=== PATIENT | female | born 1960 | race Caucasian/White ===

== ENCOUNTER 2022-02-12 16:08 | Observation (INO) | payer MEDICARE ==
[2022-02-12] MEDS ORDERED: Sodium Chloride 0.9% 1000 ML 1,000 ML IV STA (16:22)
--- NOTE | 2022-02-12 16:52 | ERPHSYRPT ---
- History of Present Illness Time Seen by Provider: 02/12/22 16:11 Source: patient, EMS Exam Limitations: no limitations Patient Subjective Stated Complaint: Syncope episode just prior to arrival to ED. Denies pain. States she was sitting down at a friends how, she remembers getting hot/flushed and then asking for a drink. Patient states she doesn't remember much after that but her friend states she started to fall out of her chair but the friend kept that from happening. Triage Nursing Assessment: Patient brought into ED by ambulace. She is alert and oriented. No SOB. LOPEZ WNL. Oral mucosa noted to be dry; lips sticking when speaking at times. Physician History: 61 years old female with history of anxiety, hypertension, migraine presented in the ER with chief complaint of syncopal episode via EMS. Patient reports she was drinking coffee and started to feel hot and the next thing it was noticed that she passed out for few seconds to minute. No seizure-like activity noticed by family/friends. No loss of bowel or bladder control/tongue bite. She is back to her normal. Patient denies having chest pain, palpitations, feeling dizzy lightheaded before or after the episode of syncope. Denies any history of syncope in the past. No abdominal pain nausea vomiting or diarrhea reported. Timing/Duration: today, resolved prior to arrival, improved Severity: moderate Deficits: no difficulties Baseline/Normal Cognition: alert oriented x 3 Current Cognition: alert oriented x 3 Baseline Gait: walks w/o assistance Associated Symptoms: fatigue, No nausea, No vomiting, No weakness, No insomnia, No muscle spasms, No numbness/tingling in legs/feet, No paresthesia, No ringing in ears, No seizures, No slurred speech, No trouble walking, No vision changes, No chest pain, No headache Allergies/Adverse Reactions: Penicillins Allergy (Verified 02/12/22 16:11) Home Medications: Lisinopril 10 mg [Zestril 10 MG] 1 tab PO DAILY 02/12/22 [History] Metoclopramide HCl 1 tab PO TID 02/12/22 [History] Topiramate [Trokendi Xr] 1 cap PO DAILY 02/12/22 [History] Venlafaxine HCl [Venlafaxine HCl ER] 1 tab PO DAILY 02/12/22 [History] Hx Tetanus, Diphtheria Vaccination/Date Given: Yes Hx Influenza Vaccination/Date Given: No Hx Pneumococcal Vaccination/Date Given: No Immunizations Up to Date: Yes Travel Risk - International Travel Have you traveled outside of the country in past 3 weeks: No - Coronavirus Screening Are you exhibiting any of the following symptoms?: Yes Symptoms: Cough: New Onset, Headaches/Body Aches/Fatigue Close contact with a COVID-19 positive Pt in past 14-21 Days: No - Vaccine Status Have you recieved a Covid-19 vaccination: No - Review of Systems Constitutional: No Symptoms Eyes: No Symptoms Ears, Nose, & Throat: No Symptoms Respiratory: No Symptoms Cardiac: No Symptoms Abdominal/Gastrointestinal: No Symptoms Genitourinary Symptoms: No Symptoms Musculoskeletal: No Symptoms Skin: No Symptoms Neurological: No Symptoms Psychological: No Symptoms Endocrine: No Symptoms Hematologic/Lymphatic: No Symptoms Immunological/Allergic: No Symptoms - Past Medical History Pertinent Past Medical History: Yes Neurological History: Migraines Cardiac History: Hypertension Musculoskeletal History: Degenerative Disk Disease GI Medical History: GERD Psycho-Social History: Anxiety - Past Surgical History Past Surgical History: Yes Gastrointestinal: Appendectomy, Cholecystectomy Female Surgical History: Hysterectomy, Section Other Surgical History: Bilateral elbow and hand surgery - Social History Smoking Status: Current every day smoker How long have you smoked: 45 years Exposure to second hand smoke: Yes Drug Use: none - Nursing Vital Signs Nursing Vital Signs: Initial Vital Signs Temperature 98.1 F 02/12/22 16:14 Pulse Rate 78 02/12/22 16:14 Respiratory Rate 18 02/12/22 16:14 Blood Pressure 108/63 02/12/22 16:14 O2 Sat by Pulse Oximetry 96 02/12/22 16:14 Pain Scale Pain Intensity 0 - [place] Coma Scale Best Eye Response (Peggy): (4) open spontaneously Best Verbal Response ([place]): (5) oriented Best Motor Response (Peggy): (6) obeys commands Peggy Total: 15 - Physical Exam General Appearance: no apparent distress, alert Eye Exam: bilateral eye: normal inspection, PERRL, EOMI Ears, Nose, Throat Exam: normal ENT inspection, TMs normal, pharynx normal, moist mucous membranes Neck Exam: normal inspection, non-tender, supple, full range of motion, No meningismus Respiratory: normal breath sounds, lungs clear Cardiovascular: regular rate/rhythm, normal heart sounds Gastrointestinal: soft, normal bowel sounds, No tenderness Back Exam: normal inspection, normal range of motion Extremity Exam: normal inspection, normal range of motion, pelvis stable Mental Status: alert, oriented x 3, cooperative injection machine operator Exam: normal hearing, normal speech, PERRL Coordination/Gait: normal finger to nose, normal gait, normal cerebellar function, negative Romberg's sign Motor/Sensory: no motor deficit, no sensory deficit, no pronator drift, negative Babinski's sign DTR: bicep (R): 2+, bicep (L): 2+, knee (R): 2+, knee (L): 2+ Skin Exam: normal color SpO2 Interpretation: normal SpO2: 96 O2 Delivery: Room Air - Course EKG Interpreted by Me: RATE (72), Sinus Rhythm, NORMAL AXIS, NORMAL INTERVALS, Right Bundle Branch Block, Non-specific ST Changes Ordered Tests: Active Orders 24 hr Category Date Time Status [employer] Principal STAT Care 02/12/22 16:23 Active Clean Catch Urine Specimen STAT Care 02/12/22 16:22 Active EKG-ER Only STAT Care 02/12/22 16:22 Active IV Insertion STAT Care 02/12/22 16:22 Active Orthostatic Vital Signs STAT Care 02/12/22 16:22 Active POCT Glucose Check STAT Care 02/12/22 16:22 Active CHEST 1 VIEW (PORTABLE) Stat Exams 02/12/22 16:22 Completed HEAD WITHOUT CONTRAST [CT] Stat Exams 02/12/22 16:22 Completed BLOOD CULTURE Stat Lab 02/12/22 16:50 Received BNP [NT PRO BNP] Stat Lab 02/12/22 16:45 Completed CBC W DIFF Stat Lab 02/12/22 16:45 Completed CMP Stat Lab 02/12/22 16:45 Completed CULTURE,URINE Stat Lab 02/12/22 17:41 Received MAG [MAGNESIUM] Stat Lab 02/12/22 16:45 Completed TROPONIN Q3H Lab 02/12/22 16:45 Completed TROPONIN Q3H Lab 02/12/22 19:30 Ordered TROPONIN Q3H Lab 02/12/22 22:30 Ordered TROPONIN Q3H Lab 02/13/22 01:30 Ordered UA W/RFX CULTURE Stat Lab 02/12/22 17:41 Completed Urine Triage Profile Stat Lab 02/12/22 17:10 Completed Transfer Order Routine Transfer 02/12/22 Ordered Medication Summary Generic Name Dose Route Start Last Admin Trade Name Issac PRN Reason Stop Dose Admin Levofloxacin/Dextrose 750 mg in 150 mls @ 100 mls/hr 02/12/22 17:50 02/12/22 17:56 Levofloxacin 750mg/150ml D5w IV 02/12/22 19:19 100 mls/hr STAT STA 100 mls/hr Administration Discontinued Medications Generic Name Dose Route Start Last Admin Trade Name Freq PRN Reason Stop Dose Admin Sodium Chloride 1,000 mls @ 999 mls/hr 02/12/22 16:22 02/12/22 18:19 Sodium Chloride 0.9% 1000 Ml IV 02/12/22 17:22 Infused .Q1H1M STA Infusion Sodium Chloride Confirm 02/12/22 17:09 Sodium Chloride 0.9% 1000 Ml Administered 02/12/22 17:10 Dose 1,000 mls @ ud .ROUTE .[employer] ONE Levofloxacin/Dextrose Confirm 02/12/22 17:54 Levofloxacin 750mg/150ml D5w Administered 02/12/22 17:55 Dose 750 mg in 150 mls @ ud IV .[facility] [employer] Lab/Rad Data: Laboratory Result Diagrams 02/12/22 16:45 02/12/22 16:45 Laboratory Results 02/12/22 02/12/22 02/12/22 Range/Units 18:00 17:41 17:10 WBC (4.0-10.5) x10^3/uL RBC (4.1-5.4) x10^6/uL Hgb (12.0-16.0) g/dL Hct (35-47) % MCV (78-100) fL MCH (26-32) pg MCHC (32-36) g/dL RDW (11.5-14.0) % Plt Count (150-450) x10^3/uL MPV (7.5-11.0) fL Gran % (36.0-66.0) % Immature Gran % (Auto) (0.00-0.4) % Nucleat RBC Rel Count (0.00-0.1) % Eos # (Auto) (0-0.5) x10^3/uL Immature Gran # (Auto) (0.00-0.03) x10^3u/L Absolute Lymphs (auto) (1.0-4.6) x10^3/uL Absolute Monos (auto) (0.0-1.3) x10^3/uL Absolute Nucleated RBC (0.00-0.01) x10^3u/L Lymphocytes % (24.0-44.0) % Monocytes % (0.0-12.0) % Eosinophils % (0.00-5.0) % Basophils % (0.0-0.4) % Absolute Granulocytes (1.4-6.9) x10^3/uL Basophils # (0-0.4) x10^3/uL Sodium (137-145) mmol/L Potassium (3.5-5.1) mmol/L Chloride (98-107) mmol/L Carbon Dioxide (22-30) mmol/L Anion Gap (5-15) MEQ/L BUN (7-17) mg/dL Creatinine (0.52-1.04) mg/dL Estimated GFR ML/MIN Glucose (74-106) mg/dL Calcium (8.4-10.2) mg/dL Magnesium (1.6-2.3) mg/dL Total Bilirubin (0.2-1.3) mg/dL AST (14-36) U/L ALT (0-35) U/L Alkaline Phosphatase (38-126) U/L Troponin I (0.000-0.034) ng/mL NT-Pro-B Natriuret Pep (0-900) pg/mL Serum Total Protein (6.3-8.2) g/dL Albumin (3.5-5.0) g/dL Urinalys Dipstick Clnc MAIN LAB Urine Color YELLOW (YELLOW) Urine Appearance SLIGHTLY CLOUDY A (CLEAR) Urine pH 6.5 (5-6) Ur Specific [place] 1.020 (1.005-1.025) POC Urine Protein Conf 30 A (Negative) Urine Ketones NEGATIVE (NEGATIVE) Urine Nitrite POSITIVE A (NEGATIVE) Urine Bilirubin NEGATIVE (NEGATIVE) Urine Urobilinogen 0.2 (0-1) mg/dL Urine Leukocytes TRACE A (NEGATIVE) Urine WBC (Auto) 3-5 A (0-5) /HPF Urine RBC (Auto) 0-2 (0-2) /HPF U Epithel Cells (Auto) NONE (FEW) /HPF Urine Bacteria (Auto) MANY A (NEGATIVE) /HPF Urine RBC SMALL A (0-5) Branden/ul Urine Mucus (Auto) SLIGHT A (NEGATIVE) /HPF Ur Culture Indicated? YES Urine Glucose NEGATIVE (NEGATIVE) mg/dL Urine Opiates Level NEGATIVE (NEGATIVE) Ur Methadone NEGATIVE (NEGATIVE) Urine Barbiturates NEGATIVE (NEGATIVE) Ur Phencyclidine (PCP) NEGATIVE (NEGATIVE) Urine Amphetamine NEGATIVE (NEGATIVE) U Benzodiazepine Level NEGATIVE (NEGATIVE) Urine Cocaine NEGATIVE (NEGATIVE) Urine Marijuana (THC) POSITIVE (NEGATIVE) Influenza Type A Ag NEGATIVE (NEGATIVE) Influenza Type B Ag NEGATIVE (NEGATIVE) RSV (PCR) NEGATIVE (Negative) SARS-CoV-2 (PCR) NEGATIVE (NEGATIVE) 02/12/22 02/12/22 02/12/22 Range/Units 16:45 16:45 16:45 WBC (4.0-10.5) x10^3/uL RBC (4.1-5.4) x10^6/uL Hgb (12.0-16.0) g/dL Hct (35-47) % MCV (78-100) fL MCH (26-32) pg MCHC (32-36) g/dL RDW (11.5-14.0) % Plt Count (150-450) x10^3/uL MPV (7.5-11.0) fL Gran % (36.0-66.0) % Immature Gran % (Auto) (0.00-0.4) % Nucleat RBC Rel Count (0.00-0.1) % Eos # (Auto) (0-0.5) x10^3/uL Immature Gran # (Auto) (0.00-0.03) x10^3u/L Absolute Lymphs (auto) (1.0-4.6) x10^3/uL Absolute Monos (auto) (0.0-1.3) x10^3/uL Absolute Nucleated RBC (0.00-0.01) x10^3u/L Lymphocytes % (24.0-44.0) % Monocytes % (0.0-12.0) % Eosinophils % (0.00-5.0) % Basophils % (0.0-0.4) % Absolute Granulocytes (1.4-6.9) x10^3/uL Basophils # (0-0.4) x10^3/uL Sodium 134 L (137-145) mmol/L Potassium 4.2 (3.5-5.1) mmol/L Chloride 104 (98-107) mmol/L Carbon Dioxide 25 (22-30) mmol/L Anion Gap 8.7 (5-15) MEQ/L BUN 12 (7-17) mg/dL Creatinine 0.68 (0.52-1.04) mg/dL Estimated GFR > 60.0 ML/MIN Glucose 106 (74-106) mg/dL Calcium 8.5 (8.4-10.2) mg/dL Magnesium 1.8 (1.6-2.3) mg/dL Total Bilirubin 0.20 (0.2-1.3) mg/dL AST 21 (14-36) U/L ALT 17 (0-35) U/L Alkaline Phosphatase 63 (38-126) U/L Troponin I < 0.012 (0.000-0.034) ng/mL NT-Pro-B Natriuret Pep 65.8 (0-900) pg/mL Serum Total Protein 6.1 L (6.3-8.2) g/dL Albumin 3.8 (3.5-5.0) g/dL Urinalys Dipstick Clnc Urine Color (YELLOW) Urine Appearance (CLEAR) Urine pH (5-6) Ur Specific [place] (1.005-1.025) POC Urine Protein Conf (Negative) Urine Ketones (NEGATIVE) Urine Nitrite (NEGATIVE) Urine Bilirubin (NEGATIVE) Urine Urobilinogen (0-1) mg/dL Urine Leukocytes (NEGATIVE) Urine WBC (Auto) (0-5) /HPF Urine RBC (Auto) (0-2) /HPF U Epithel Cells (Auto) (FEW) /HPF Urine Bacteria (Auto) (NEGATIVE) /HPF Urine RBC (0-5) Branden/ul Urine Mucus (Auto) (NEGATIVE) /HPF Ur Culture Indicated? Urine Glucose (NEGATIVE) mg/dL Urine Opiates Level (NEGATIVE) Ur Methadone (NEGATIVE) Urine Barbiturates (NEGATIVE) Ur Phencyclidine (PCP) (NEGATIVE) Urine Amphetamine (NEGATIVE) U Benzodiazepine Level (NEGATIVE) Urine Cocaine (NEGATIVE) Urine Marijuana (THC) (NEGATIVE) Influenza Type A Ag (NEGATIVE) Influenza Type B Ag (NEGATIVE) RSV (PCR) (Negative) SARS-CoV-2 (PCR) (NEGATIVE) 02/12/22 Range/Units 16:45 WBC 4.8 (4.0-10.5) x10^3/uL RBC 4.45 (4.1-5.4) x10^6/uL Hgb 13.7 (12.0-16.0) g/dL Hct 40.3 (35-47) % MCV 90.6 (78-100) fL MCH 30.8 (26-32) pg MCHC 34.0 (32-36) g/dL RDW 11.9 (11.5-14.0) % Plt Count 174 (150-450) x10^3/uL MPV 9.7 (7.5-11.0) fL Gran % 63.0 (36.0-66.0) % Immature Gran % (Auto) 0.4 (0.00-0.4) % Nucleat RBC Rel Count 0.0 (0.00-0.1) % Eos # (Auto) 0.13 (0-0.5) x10^3/uL Immature Gran # (Auto) 0.02 (0.00-0.03) x10^3u/L Absolute Lymphs (auto) 1.15 (1.0-4.6) x10^3/uL Absolute Monos (auto) 0.44 (0.0-1.3) x10^3/uL Absolute Nucleated RBC 0.00 (0.00-0.01) x10^3u/L Lymphocytes % 24.1 (24.0-44.0) % Monocytes % 9.2 (0.0-12.0) % Eosinophils % 2.7 (0.00-5.0) % Basophils % 0.6 (0.0-0.4) % Absolute Granulocytes 3.00 (1.4-6.9) x10^3/uL Basophils # 0.03 (0-0.4) x10^3/uL Sodium (137-145) mmol/L Potassium (3.5-5.1) mmol/L Chloride (98-107) mmol/L Carbon Dioxide (22-30) mmol/L Anion Gap (5-15) MEQ/L BUN (7-17) mg/dL Creatinine (0.52-1.04) mg/dL Estimated GFR ML/MIN Glucose (74-106) mg/dL Calcium (8.4-10.2) mg/dL Magnesium (1.6-2.3) mg/dL Total Bilirubin (0.2-1.3) mg/dL AST (14-36) U/L ALT (0-35) U/L Alkaline Phosphatase (38-126) U/L Troponin I (0.000-0.034) ng/mL NT-Pro-B Natriuret Pep (0-900) pg/mL Serum Total Protein (6.3-8.2) g/dL Albumin (3.5-5.0) g/dL Urinalys Dipstick Clnc Urine Color (YELLOW) Urine Appearance (CLEAR) Urine pH (5-6) Ur Specific [place] (1.005-1.025) POC Urine Protein Conf (Negative) Urine Ketones (NEGATIVE) Urine Nitrite (NEGATIVE) Urine Bilirubin (NEGATIVE) Urine Urobilinogen (0-1) mg/dL Urine Leukocytes (NEGATIVE) Urine WBC (Auto) (0-5) /HPF Urine RBC (Auto) (0-2) /HPF U Epithel Cells (Auto) (FEW) /HPF Urine Bacteria (Auto) (NEGATIVE) /HPF Urine RBC (0-5) Branden/ul Urine Mucus (Auto) (NEGATIVE) /HPF Ur Culture Indicated? Urine Glucose (NEGATIVE) mg/dL Urine Opiates Level (NEGATIVE) Ur Methadone (NEGATIVE) Urine Barbiturates (NEGATIVE) Ur Phencyclidine (PCP) (NEGATIVE) Urine Amphetamine (NEGATIVE) U Benzodiazepine Level (NEGATIVE) Urine Cocaine (NEGATIVE) Urine Marijuana (THC) (NEGATIVE) Influenza Type A Ag (NEGATIVE) Influenza Type B Ag (NEGATIVE) RSV (PCR) (Negative) SARS-CoV-2 (PCR) (NEGATIVE) - Progress Progress: improved Progress Note: 02/12/22 18:39 61 years old is evaluated for syncopal episode prior to arrival. Patient is awake alert and oriented x4 on presentation. Not in any distress. EKG showed normal sinus rhythm. She is given fluids, on reevaluation feeling better. CT head is negative for any acute intracranial findings. Chest x-ray negative for any acute cardiopulmonary findings. Grossly unremarkable work-up except for UTI and given a dose of Levaquin. Do not know the exact cause of her syncope. Discussed with Dr. Tovar, reviewed history, work-up and patient is being admitted for observation and further syncopal work-up. Discussed with : Jacob Will see patient in: hospital (observation) Counseled pt/family regarding: lab results, diagnosis, rad results - Departure Departure Disposition: Observation Clinical Impression: Syncope and collapse, Acute UTI Condition: Stable Critical Care Time: No Referrals: RENETTA ALEXANDER [Primary Care Provider] - Follow up/PCP as directed
[2022-02-12 16:59] LABS: Basophil (Absolute #) 0.03 x10^3/uL (0-0.4); Eosinophil % 2.7 % (0.00-5.0); Eosinophil (Absolute #) 0.13 x10^3/uL (0-0.5); Hematocrit 40.3 % (35-47); Hemoglobin 13.7 g/dL (12.0-16.0); Lymphocyte (Absolute #) 1.15 x10^3/uL (1.0-4.6); Lymphocytes % 24.1 % (24.0-44.0); Mean Cell Volume 90.6 fL (78-100); Mean Corpuscular Hemoglobin 30.8 pg (26-32); Mean Platelet Volume 9.7 fL (7.5-11.0); Monocyte (Absolute #) 0.44 x10^3/uL (0.0-1.3); Monocytes % 9.2 % (0.0-12.0); Platelet Count 174 x10^3/uL (150-450); Red Blood Count 4.45 x10^6/uL (4.1-5.4); Red Cell Distribution Width 11.9 % (11.5-14.0); White Blood Count 4.8 x10^3/uL (4.0-10.5)
[2022-02-12] MEDS ORDERED: Sodium Chloride 0.9% 1000 ML 1,000 ML ONE (17:09)
[2022-02-12 17:19] LABS: ALBUMIN 3.8 g/dL (3.5-5.0); ALKALINE PHOSPHATASE 63 U/L (38-126); ANION GAP 8.7 MEQ/L (5-15); BLOOD UREA NITROGEN 12 mg/dL (7-17); CHLORIDE 104 mmol/L (98-107); Calcium 8.5 mg/dL (8.4-10.2); Carbon Dioxide 25 mmol/L (22-30); Creatinine 1 0.68 mg/dL (0.52-1.04); EST GLOMERULAR FILTRATION RATE > 60.0 ML/MIN; Glucose 106 mg/dL (74-106); Potassium 4.2 mmol/L (3.5-5.1); SGOT/AST 21 U/L (14-36); SGPT/ALT 17 U/L (0-35); SODIUM 134 mmol/L (137-145); Total Protein 6.1 g/dL (6.3-8.2)
[2022-02-12 17:28] LABS: MAGNESIUM 1.8 mg/dL (1.6-2.3); NT PRO BNP 65.8 pg/mL (0-900)
[2022-02-12 17:48] LABS: Appearance SLIGHTLY CLOUDY (CLEAR); Bilirubin NEGATIVE (NEGATIVE); Glucose NEGATIVE (NEGATIVE); Ketones NEGATIVE (NEGATIVE)
[2022-02-12 17:49] LABS: Dipstick done @ ? MAIN LAB; Nitrite POSITIVE (NEGATIVE); Ph 6.5 (5-6); Protein,Urine Dip 30 (Negative); RBC SMALL Ery/ul (0-5); Urobilinogen 0.2 mg/dL (0-1)
[2022-02-12 17:50] LABS: Bacteria MANY /HPF (NEGATIVE); Mucus SLIGHT /HPF (NEGATIVE); RBC 0-2 /HPF (0-2); Urine Cultured Indicated? YES
[2022-02-12] MEDS ORDERED: LEVOFLOXACIN 750MG/150ML D5W 750 MG/150 ML BAG IV STA (17:50)
--- NOTE | 2022-02-12 17:51 | XRAY ---
Indication: Syncope. Multiple contiguous axial images obtained through the head without contrast. Comparison: None Normal appearing brain parenchyma, ventricles, and bony calvarium for patient's age. Visualized paranasal sinuses and mastoid air cells are clear. Impression: Normal CT head without contrast exam. Comment: Preliminary interpretation made by [facility]. No critical discrepancy.
--- NOTE | 2022-02-12 17:51 | XRAY ---
Indication: Syncopal episode. Comparison: None Portable apical lordotic chest demonstrates mild bibasilar fibrosis/scarring. Remaining heart and lungs unremarkable. Bony thorax intact with osteopenia and degenerative changes. Impression: Nonacute chest with chronic features.
[2022-02-12] MEDS ORDERED: LEVOFLOXACIN 750MG/150ML D5W 750 MG/150 ML BAG IV ONE (17:54)
[2022-02-12 18:03] LABS: Amphetamine,Urine NEGATIVE (NEGATIVE); Benzodiazepine,Urine NEGATIVE (NEGATIVE); Cocaine,Urine NEGATIVE (NEGATIVE); Methadone,Urine NEGATIVE (NEGATIVE); Opiate,Urine NEGATIVE (NEGATIVE); PCP,Urine NEGATIVE (NEGATIVE); THC,Urine POSITIVE (NEGATIVE)
[2022-02-12 18:08] LABS: Barbiturate,Urine NEGATIVE (NEGATIVE)
[2022-02-12 18:42] LABS: INFLUENZA A NEGATIVE (NEGATIVE); INFLUENZA B NEGATIVE (NEGATIVE); RESPIRATORY SYNCTIAL VIRUS NEGATIVE (Negative); SARS-CoV-2 Xpert Express NEGATIVE (NEGATIVE)
[2022-02-12] MEDS ORDERED: Zofran 4 MG/2 ML VIAL IV PRN (20:32)
[2022-02-12] MEDS ORDERED: TYLENOL 325 MG PO PRN (20:32)
[2022-02-12] MEDS ORDERED: DUONEB 0.5-3 MG/3 ml Neb IH PRN (20:32)
[2022-02-12] MEDS: Sodium Chloride 0.9% 1000 ML 1,000 ML IV SCH (20:45)
[2022-02-13 04:55] LABS: Absolute Neutrophil Ct (ANC) 1.43 x10^3/uL (1.4-6.9); Basophil (Absolute #) 0.02 x10^3/uL (0-0.4); Eosinophil % 4.4 % (0.00-5.0); Eosinophil (Absolute #) 0.16 x10^3/uL (0-0.5); Hematocrit 36.5 % (35-47); Lymphocytes % 43.8 % (24.0-44.0); Mean Cell Volume 91.3 fL (78-100); Mean Corpuscular Hgb Concent. 32.9 g/dL (32-36); Mean Platelet Volume 9.6 fL (7.5-11.0); Monocyte (Absolute #) 0.43 x10^3/uL (0.0-1.3); Monocytes % 11.8 % (0.0-12.0); Neutrophil % 39.2 % (36.0-66.0); Platelet Count 151 x10^3/uL (150-450); Red Cell Distribution Width 11.7 % (11.5-14.0); White Blood Count 3.7 x10^3/uL (4.0-10.5)
[2022-02-13 06:08] LABS: ALBUMIN 3.1 g/dL (3.5-5.0); ALKALINE PHOSPHATASE 52 U/L (38-126); BLOOD UREA NITROGEN 11 mg/dL (7-17); CHLORIDE 111 mmol/L (98-107); Calcium 7.8 mg/dL (8.4-10.2); Carbon Dioxide 21 mmol/L (22-30); Creatinine 1 0.58 mg/dL (0.52-1.04); EST GLOMERULAR FILTRATION RATE > 60.0 ML/MIN; Glucose 100 mg/dL (74-106); Potassium 3.8 mmol/L (3.5-5.1); SGOT/AST 18 U/L (14-36); SGPT/ALT 15 U/L (0-35); SODIUM 138 mmol/L (137-145); Total Protein 5.5 g/dL (6.3-8.2)
[2022-02-13] MEDS: Sodium Chloride 0.9% 1000 ML 1,000 ML IV SCH (06:37)
[2022-02-13] MEDS ORDERED: Levofloxacin 500MG/100ML D5W 500 MG/100 ML BAG IV SCH (10:00)
[2022-02-13] MEDS ORDERED: PROTONIX 40 MG IV IV SCH (10:00)
[2022-02-13 11:43] VITALS: BP 124/60; PULSE 71; O2SAT 93
[2022-02-13] MEDS ORDERED: Reglan 10 MG PO SCH (12:00)
[2022-02-13] MEDS ORDERED: Effexor XR 75 MG PO SCH (13:00)
[2022-02-13] MEDS ORDERED: Zestril 10 MG PO SCH (13:00)
[2022-02-13] MEDS ORDERED: ESTRACE 1 MG PO SCH (13:00)
--- NOTE | 2022-02-13 14:44 | PCM.SSS ---
History of Present Illness - Chief Complaint Chief Complaint: Syncope and collapse at home History of Present Illness: is a 61 year old female.with history of anxiety, hypertension, zach pedraza presented in the ER with chief complaint of syncopal episode via EMS. Patient reports she was drinking coffee and started to feel hot and the next thing it was noticed that she passed out for few seconds to minute. No seizure- like activity noticed by family/friends. No loss of bowel or bladder control/tongue bite. She is back to her normal. Patient denies having chest pain, palpitations, feeling dizzy lightheaded before or after the episode of syncope. Denies any history of syncope in the past. No abdominal pain nausea vomiting or diarrhea reported. Timing/Duration: today, resolved prior to arrival, improved Severity: moderate Deficits: no difficulties Baseline/Normal Cognition: alert oriented x 3 Current Cognition: alert oriented x 3 Baseline Gait: walks w/o assistance Associated Symptoms: fatigue, No nausea, No vomiting, No weakness, No insomnia, No muscle spasms, No numbness/tingling in legs/feet, No paresthesia, No ringing in ears, No seizures, No slurred speech, No trouble walking, No vision changes, No chest pain, No headache - Review of Systems Constitutional: No Fever, No Chills Eyes: No Symptoms Ears, Nose, & Throat: No Symptoms Respiratory: No Cough, No Short Of Breath Cardiac: No Chest Pain, No Edema, No Syncope Abdominal/Gastrointestinal: No Abdominal Pain, No Nausea, No Vomiting, No Diarrhea Genitourinary Symptoms: No Dysuria Musculoskeletal: No Back Pain, No Neck Pain Skin: No Rash Neurological: Other (syncopal episode at home), No Dizziness, No Focal Weakness, No Sensory Changes Psychological: No Symptoms Endocrine: No Symptoms Hematologic/Lymphatic: No Symptoms Immunological/Allergic: No Symptoms Medications & Allergies Home Medications: Home Medication List Estradiol [Estrace] 0.5 mg PO DAILY 02/12/22 [History Confirmed 02/12/22] Lisinopril 10 mg [Zestril 10 MG] 10 mg PO DAILY 02/12/22 [History Confirmed 02/12/22] Metoclopramide HCl 5 mg PO TIDWMEALS 02/12/22 [History Confirmed 02/12/22] PANTOPRAZOLE 40 mg Tablet [Protonix 40MG Tablet] 40 mg PO QAM 02/12/22 [History Confirmed 02/12/22] Topiramate [Trokendi Xr] 200 mg PO DAILY 02/12/22 [History Confirmed 02/12/22] Venlafaxine HCl [Venlafaxine HCl ER] 150 mg PO DAILY 02/12/22 [History Confirmed 02/12/22] Levofloxacin [Levofloxacin 500 MG Tablet] 500 mg PO DAILY 5 Days #5 tablet 02/13/22 [Rx] Allergies/Adverse Reactions: Allergies Allergy/AdvReac Type Severity Reaction Status Date / Time Penicillins Allergy Verified 02/12/22 16:11 - Past Medical History Past Medical History: Yes Neurological History: Migraines ENT History: No Pertinent History Cardiac History: Hypertension Respiratory History: No Pertinent History Endocrine Medical History: No Pertinent History Musculoskelatal History: Degenerative Disk Disease GI Medical History: GERD History: Other Pyscho-Social History: Anxiety, Depression Reproductive Disorders: No Pertinent History Comment: cysts in bilateral kidneys - Female History Are you now?: No - Past Surgical History Past Surgical History: Yes Cardiac History: No Pertinent History Respiratory Surgery: No Pertinent History GI Surgical History: Appendectomy, Cholecystectomy Genitourinary Surgical Hx: No Pertinent History Musculskeletal Surgical Hx: Other Female Surgical History: Hysterectomy, Section Other Surgical History: Bilateral elbow and hand surgery - Social History Smoking Status: Current every day smoker How long have you smoked: 45 years Exposure to second hand smoke: Yes Alcohol: None Drug Use: none - Physical Exam Vital Signs: Vital Signs - 24 hr Temp Pulse Resp BP Pulse Ox 02/13/22 12:00 19 02/13/22 11:41 97.3 F 71 19 124/60 93 L 02/13/22 08:00 97.9 F 69 16 130/72 94 L 02/13/22 04:00 22 02/13/22 03:53 96.9 F 69 22 143/69 95 02/13/22 00:00 22 02/12/22 23:59 96.9 F 71 18 118/63 96 02/12/22 21:48 66 18 98 02/12/22 20:43 96.5 F 71 16 126/58 97 02/12/22 20:14 71 18 129/79 100 02/12/22 19:10 70 13 129/79 97 12/04/22 19:03 96 02/12/22 18:10 75 26 H 123/64 97 02/12/22 17:10 75 16 111/61 98 02/12/22 16:14 98.1 F 78 18 108/63 96 General Appearance: no apparent distress, alert Neurologic Exam: alert, oriented x 3, cooperative, normal mood/affect, nml cerebellar function, nml station & gait, sensation nml, No motor deficits Eye Exam: PERRL/EOMI, eyes nml inspection Ears, Nose, Throat Exam: normal ENT inspection, TMs normal, pharynx normal, moist mucous membranes Neck Exam: normal inspection, non-tender, supple, full range of motion Respiratory Exam: normal breath sounds, lungs clear, No respiratory distress Cardiovascular Exam: regular rate/rhythm, normal heart sounds, normal peripheral pulses Gastrointestinal/Abdomen Exam: soft, normal bowel sounds, No tenderness, No mass Back Exam: normal inspection, normal range of motion, No CVA tenderness, No vertebral tenderness Extremity Exam: normal inspection, normal range of motion, pelvis stable Skin Exam: normal color, warm, dry, No rash Lymphatic Exam: No adenopathy Results - Labs Lab/Micro Results: Lab Results-Last 24 Hours 02/12/22 02/12/22 02/12/22 Range/Units 16:45 16:45 16:45 WBC 4.8 (4.0-10.5) x10^3/uL RBC 4.45 (4.1-5.4) x10^6/uL Hgb 13.7 (12.0-16.0) g/dL Hct 40.3 (35-47) % MCV 90.6 (78-100) fL MCH 30.8 (26-32) pg MCHC 34.0 (32-36) g/dL RDW 11.9 (11.5-14.0) % Plt Count 174 (150-450) x10^3/uL MPV 9.7 (7.5-11.0) fL Gran % 63.0 (36.0-66.0) % Immature Gran % (Auto) 0.4 (0.00-0.4) % Nucleat RBC Rel Count 0.0 (0.00-0.1) % Eos # (Auto) 0.13 (0-0.5) x10^3/uL Immature Gran # (Auto) 0.02 (0.00-0.03) x10^3u/L Absolute Lymphs (auto) 1.15 (1.0-4.6) x10^3/uL Absolute Monos (auto) 0.44 (0.0-1.3) x10^3/uL Absolute Nucleated RBC 0.00 (0.00-0.01) x10^3u/L Lymphocytes % 24.1 (24.0-44.0) % Monocytes % 9.2 (0.0-12.0) % Eosinophils % 2.7 (0.00-5.0) % Basophils % 0.6 (0.0-0.4) % Absolute Granulocytes 3.00 (1.4-6.9) x10^3/uL Basophils # 0.03 (0-0.4) x10^3/uL Sodium 134 L (137-145) mmol/L Potassium 4.2 (3.5-5.1) mmol/L Chloride 104 (98-107) mmol/L Carbon Dioxide 25 (22-30) mmol/L Anion Gap 8.7 (5-15) MEQ/L BUN 12 (7-17) mg/dL Creatinine 0.68 (0.52-1.04) mg/dL Estimated GFR > 60.0 ML/MIN Glucose 106 (74-106) mg/dL Calcium 8.5 (8.4-10.2) mg/dL Magnesium 1.8 (1.6-2.3) mg/dL Total Bilirubin 0.20 (0.2-1.3) mg/dL AST 21 (14-36) U/L ALT 17 (0-35) U/L Alkaline Phosphatase 63 (38-126) U/L Troponin I (0.000-0.034) ng/mL NT-Pro-B Natriuret Pep 65.8 (0-900) pg/mL Serum Total Protein 6.1 L (6.3-8.2) g/dL Albumin 3.8 (3.5-5.0) g/dL Urinalys Dipstick Clnc Urine Color (YELLOW) Urine Appearance (CLEAR) Urine pH (5-6) Ur Specific [place] (1.005-1.025) POC Urine Protein Conf (Negative) Urine Ketones (NEGATIVE) Urine Nitrite (NEGATIVE) Urine Bilirubin (NEGATIVE) Urine Urobilinogen (0-1) mg/dL Urine Leukocytes (NEGATIVE) Urine WBC (Auto) (0-5) /HPF Urine RBC (Auto) (0-2) /HPF U Epithel Cells (Auto) (FEW) /HPF Urine Bacteria (Auto) (NEGATIVE) /HPF Urine RBC (0-5) Branden/ul Urine Mucus (Auto) (NEGATIVE) /HPF Ur Culture Indicated? Urine Glucose (NEGATIVE) mg/dL Urine Opiates Level (NEGATIVE) Ur Methadone (NEGATIVE) Urine Barbiturates (NEGATIVE) Ur Phencyclidine (PCP) (NEGATIVE) Urine Amphetamine (NEGATIVE) U Benzodiazepine Level (NEGATIVE) Urine Cocaine (NEGATIVE) Urine Marijuana (THC) (NEGATIVE) Influenza Type A Ag (NEGATIVE) Influenza Type B Ag (NEGATIVE) RSV (PCR) (Negative) SARS-CoV-2 (PCR) (NEGATIVE) 02/12/22 02/12/22 02/12/22 Range/Units 16:45 17:10 17:41 WBC (4.0-10.5) x10^3/uL RBC (4.1-5.4) x10^6/uL Hgb (12.0-16.0) g/dL Hct (35-47) % MCV (78-100) fL MCH (26-32) pg MCHC (32-36) g/dL RDW (11.5-14.0) % Plt Count (150-450) x10^3/uL MPV (7.5-11.0) fL Gran % (36.0-66.0) % Immature Gran % (Auto) (0.00-0.4) % Nucleat RBC Rel Count (0.00-0.1) % Eos # (Auto) (0-0.5) x10^3/uL Immature Gran # (Auto) (0.00-0.03) x10^3u/L Absolute Lymphs (auto) (1.0-4.6) x10^3/uL Absolute Monos (auto) (0.0-1.3) x10^3/uL Absolute Nucleated RBC (0.00-0.01) x10^3u/L Lymphocytes % (24.0-44.0) % Monocytes % (0.0-12.0) % Eosinophils % (0.00-5.0) % Basophils % (0.0-0.4) % Absolute Granulocytes (1.4-6.9) x10^3/uL Basophils # (0-0.4) x10^3/uL Sodium (137-145) mmol/L Potassium (3.5-5.1) mmol/L Chloride (98-107) mmol/L Carbon Dioxide (22-30) mmol/L Anion Gap (5-15) MEQ/L BUN (7-17) mg/dL Creatinine (0.52-1.04) mg/dL Estimated GFR ML/MIN Glucose (74-106) mg/dL Calcium (8.4-10.2) mg/dL Magnesium (1.6-2.3) mg/dL Total Bilirubin (0.2-1.3) mg/dL AST (14-36) U/L ALT (0-35) U/L Alkaline Phosphatase (38-126) U/L Troponin I < 0.012 (0.000-0.034) ng/mL NT-Pro-B Natriuret Pep (0-900) pg/mL Serum Total Protein (6.3-8.2) g/dL Albumin (3.5-5.0) g/dL Urinalys Dipstick Clnc MAIN LAB Urine Color YELLOW (YELLOW) Urine Appearance SLIGHTLY CLOUDY A (CLEAR) Urine pH 6.5 (5-6) Ur Specific [place] 1.020 (1.005-1.025) POC Urine Protein Conf 30 A (Negative) Urine Ketones NEGATIVE (NEGATIVE) Urine Nitrite POSITIVE A (NEGATIVE) Urine Bilirubin NEGATIVE (NEGATIVE) Urine Urobilinogen 0.2 (0-1) mg/dL Urine Leukocytes TRACE A (NEGATIVE) Urine WBC (Auto) 3-5 A (0-5) /HPF Urine RBC (Auto) 0-2 (0-2) /HPF U Epithel Cells (Auto) NONE (FEW) /HPF Urine Bacteria (Auto) MANY A (NEGATIVE) /HPF Urine RBC SMALL A (0-5) Branden/ul Urine Mucus (Auto) SLIGHT A (NEGATIVE) /HPF Ur Culture Indicated? YES Urine Glucose NEGATIVE (NEGATIVE) mg/dL Urine Opiates Level NEGATIVE (NEGATIVE) Ur Methadone NEGATIVE (NEGATIVE) Urine Barbiturates NEGATIVE (NEGATIVE) Ur Phencyclidine (PCP) NEGATIVE (NEGATIVE) Urine Amphetamine NEGATIVE (NEGATIVE) U Benzodiazepine Level NEGATIVE (NEGATIVE) Urine Cocaine NEGATIVE (NEGATIVE) Urine Marijuana (THC) POSITIVE (NEGATIVE) Influenza Type A Ag (NEGATIVE) Influenza Type B Ag (NEGATIVE) RSV (PCR) (Negative) SARS-CoV-2 (PCR) (NEGATIVE) 02/12/22 02/12/22 02/12/22 Range/Units 18:00 19:12 23:41 WBC (4.0-10.5) x10^3/uL RBC (4.1-5.4) x10^6/uL Hgb (12.0-16.0) g/dL Hct (35-47) % MCV (78-100) fL MCH (26-32) pg MCHC (32-36) g/dL RDW (11.5-14.0) % Plt Count (150-450) x10^3/uL MPV (7.5-11.0) fL Gran % (36.0-66.0) % Immature Gran % (Auto) (0.00-0.4) % Nucleat RBC Rel Count (0.00-0.1) % Eos # (Auto) (0-0.5) x10^3/uL Immature Gran # (Auto) (0.00-0.03) x10^3u/L Absolute Lymphs (auto) (1.0-4.6) x10^3/uL Absolute Monos (auto) (0.0-1.3) x10^3/uL Absolute Nucleated RBC (0.00-0.01) x10^3u/L Lymphocytes % (24.0-44.0) % Monocytes % (0.0-12.0) % Eosinophils % (0.00-5.0) % Basophils % (0.0-0.4) % Absolute Granulocytes (1.4-6.9) x10^3/uL Basophils # (0-0.4) x10^3/uL Sodium (137-145) mmol/L Potassium (3.5-5.1) mmol/L Chloride (98-107) mmol/L Carbon Dioxide (22-30) mmol/L Anion Gap (5-15) MEQ/L BUN (7-17) mg/dL Creatinine (0.52-1.04) mg/dL Estimated GFR ML/MIN Glucose (74-106) mg/dL Calcium (8.4-10.2) mg/dL Magnesium (1.6-2.3) mg/dL Total Bilirubin (0.2-1.3) mg/dL AST (14-36) U/L ALT (0-35) U/L Alkaline Phosphatase (38-126) U/L Troponin I < 0.012 < 0.012 (0.000-0.034) ng/mL NT-Pro-B Natriuret Pep (0-900) pg/mL Serum Total Protein (6.3-8.2) g/dL Albumin (3.5-5.0) g/dL Urinalys Dipstick Clnc Urine Color (YELLOW) Urine Appearance (CLEAR) Urine pH (5-6) Ur Specific [place] (1.005-1.025) POC Urine Protein Conf (Negative) Urine Ketones (NEGATIVE) Urine Nitrite (NEGATIVE) Urine Bilirubin (NEGATIVE) Urine Urobilinogen (0-1) mg/dL Urine Leukocytes (NEGATIVE) Urine WBC (Auto) (0-5) /HPF Urine RBC (Auto) (0-2) /HPF U Epithel Cells (Auto) (FEW) /HPF Urine Bacteria (Auto) (NEGATIVE) /HPF Urine RBC (0-5) Branden/ul Urine Mucus (Auto) (NEGATIVE) /HPF Ur Culture Indicated? Urine Glucose (NEGATIVE) mg/dL Urine Opiates Level (NEGATIVE) Ur Methadone (NEGATIVE) Urine Barbiturates (NEGATIVE) Ur Phencyclidine (PCP) (NEGATIVE) Urine Amphetamine (NEGATIVE) U Benzodiazepine Level (NEGATIVE) Urine Cocaine (NEGATIVE) Urine Marijuana (THC) (NEGATIVE) Influenza Type A Ag NEGATIVE (NEGATIVE) Influenza Type B Ag NEGATIVE (NEGATIVE) RSV (PCR) NEGATIVE (Negative) SARS-CoV-2 (PCR) NEGATIVE (NEGATIVE) 02/13/22 02/13/22 02/13/22 Range/Units 04:20 04:20 04:20 WBC 3.7 L (4.0-10.5) x10^3/uL RBC 4.00 L (4.1-5.4) x10^6/uL Hgb 12.0 (12.0-16.0) g/dL Hct 36.5 (35-47) % MCV 91.3 (78-100) fL MCH 30.0 (26-32) pg MCHC 32.9 (32-36) g/dL RDW 11.7 (11.5-14.0) % Plt Count 151 (150-450) x10^3/uL MPV 9.6 (7.5-11.0) fL Gran % 39.2 (36.0-66.0) % Immature Gran % (Auto) 0.3 (0.00-0.4) % Nucleat RBC Rel Count 0.0 (0.00-0.1) % Eos # (Auto) 0.16 (0-0.5) x10^3/uL Immature Gran # (Auto) 0.01 (0.00-0.03) x10^3u/L Absolute Lymphs (auto) 1.60 (1.0-4.6) x10^3/uL Absolute Monos (auto) 0.43 (0.0-1.3) x10^3/uL Absolute Nucleated RBC 0.00 (0.00-0.01) x10^3u/L Lymphocytes % 43.8 (24.0-44.0) % Monocytes % 11.8 (0.0-12.0) % Eosinophils % 4.4 (0.00-5.0) % Basophils % 0.5 (0.0-0.4) % Absolute Granulocytes 1.43 (1.4-6.9) x10^3/uL Basophils # 0.02 (0-0.4) x10^3/uL Sodium 138 (137-145) mmol/L Potassium 3.8 (3.5-5.1) mmol/L Chloride 111 H (98-107) mmol/L Carbon Dioxide 21 L (22-30) mmol/L Anion Gap 9.0 (5-15) MEQ/L BUN 11 (7-17) mg/dL Creatinine 0.58 (0.52-1.04) mg/dL Estimated GFR > 60.0 ML/MIN Glucose 100 (74-106) mg/dL Calcium 7.8 L (8.4-10.2) mg/dL Magnesium (1.6-2.3) mg/dL Total Bilirubin 0.10 L (0.2-1.3) mg/dL AST 18 (14-36) U/L ALT 15 (0-35) U/L Alkaline Phosphatase 52 (38-126) U/L Troponin I < 0.012 (0.000-0.034) ng/mL NT-Pro-B Natriuret Pep (0-900) pg/mL Serum Total Protein 5.5 L (6.3-8.2) g/dL Albumin 3.1 L (3.5-5.0) g/dL Urinalys Dipstick Clnc Urine Color (YELLOW) Urine Appearance (CLEAR) Urine pH (5-6) Ur Specific [place] (1.005-1.025) POC Urine Protein Conf (Negative) Urine Ketones (NEGATIVE) Urine Nitrite (NEGATIVE) Urine Bilirubin (NEGATIVE) Urine Urobilinogen (0-1) mg/dL Urine Leukocytes (NEGATIVE) Urine WBC (Auto) (0-5) /HPF Urine RBC (Auto) (0-2) /HPF U Epithel Cells (Auto) (FEW) /HPF Urine Bacteria (Auto) (NEGATIVE) /HPF Urine RBC (0-5) Branden/ul Urine Mucus (Auto) (NEGATIVE) /HPF Ur Culture Indicated? Urine Glucose (NEGATIVE) mg/dL Urine Opiates Level (NEGATIVE) Ur Methadone (NEGATIVE) Urine Barbiturates (NEGATIVE) Ur Phencyclidine (PCP) (NEGATIVE) Urine Amphetamine (NEGATIVE) U Benzodiazepine Level (NEGATIVE) Urine Cocaine (NEGATIVE) Urine Marijuana (THC) (NEGATIVE) Influenza Type A Ag (NEGATIVE) Influenza Type B Ag (NEGATIVE) RSV (PCR) (Negative) SARS-CoV-2 (PCR) (NEGATIVE) Microbiology 02/12/22 17:41 Urine Culture - Preliminary Urine, Void GRAM NEGATIVE ID AND SENSITIVITY PENDING Accuchecks Date 02/12/22 Time 17:41 - Radiology Impressions Radiology Exams & Impressions: Radiology Procedures Category Date Time Status CHEST 1 VIEW (PORTABLE) Stat Exams 02/12/22 16:22 Completed HEAD WITHOUT CONTRAST [CT] Stat Exams 02/12/22 16:[address]/HEAD WITHOUT CONTRAST Indication: Syncope. Multiple contiguous axial images obtained through the head without contrast. Comparison: None Normal appearing brain parenchyma, ventricles, and bony calvarium for patient's age. Visualized paranasal sinuses and mastoid air cells are clear. Impression: Normal CT head without contrast exam. Assessment/Plan (1) Acute UTI Status: Acute Code(s): N39.0 - URINARY TRACT INFECTION, SITE NOT SPECIFIED (2) Syncope and collapse Status: Acute Code(s): R55 - SYNCOPE AND COLLAPSE Hospital Summary - Hospital Course Hospital Course: Chief Complaint Diagnosis Syncope and collapse Allergies Allergy/AdvReac Type Severity Reaction Status Date / Time Penicillins Allergy Verified 02/12/22 16:11 Vital Signs (Last 24 hours) Temp Pulse Resp BP Pulse Ox 02/13/22 12:00 19 02/13/22 11:41 97.3 F 71 19 124/60 93 L 02/13/22 08:00 97.9 F 69 16 130/72 94 L 02/13/22 04:00 22 02/13/22 03:53 96.9 F 69 22 143/69 95 02/13/22 00:00 22 02/12/22 23:59 96.9 F 71 18 118/63 96 02/12/22 21:48 66 18 98 02/12/22 20:43 96.5 F 71 16 126/58 97 02/12/22 20:14 71 18 129/79 100 02/12/22 19:10 70 13 129/79 97 02/12/22 19:03 96 02/12/22 18:10 75 26 H 123/64 97 02/12/22 17:10 75 16 111/61 98 02/12/22 16:14 98.1 F 78 18 108/63 96 Home Medications Medication Instructions Recorded Confirmed Last Taken Type Estradiol [Estrace] 0.5 mg PO DAILY 02/12/22 02/12/22 02/12/22 08:00 History Lisinopril 10 mg [Zestril 10 10 mg PO DAILY 02/12/22 02/12/22 02/12/22 08:00 History MG] Metoclopramide HCl 5 mg PO TIDWMEALS 02/12/22 02/12/22 02/12/22 08:00 History PANTOPRAZOLE 40 mg Tablet 40 mg PO QAM 02/12/22 02/12/22 02/12/22 08:00 History [Protonix 40MG Tablet] Topiramate [Trokendi Xr] 200 mg PO DAILY 02/12/22 02/12/22 02/12/22 08:00 History Venlafaxine HCl [Venlafaxine HCl 150 mg PO DAILY 02/12/22 02/12/22 02/12/22 08:00 History ER] Levofloxacin [Levofloxacin 500 500 mg PO DAILY 5 Days #5 tablet 02/13/22 Unknown Rx MG Tablet] Current Medications Discontinued Medications Generic Name Dose Route Start Last Admin Trade Name Freq PRN Reason Stop Dose Admin Acetaminophen 650 mg 02/12/22 20:32 Acetaminophen 325 Mg Tablet PO 03/14/22 20:31 Q4H PRN PRN PAIN AND/OR FEVER Albuterol/Ipratropium 3 ml 02/12/22 20:32 Ipratropium/Albuterol Sulfate 3 Ml Ampul.Neb IH 03/14/22 20:31 Q4HPRN PRN SHORTNESS OF BREATH/WHEEZING Estradiol 0.5 mg 02/13/22 13:00 Estradiol 1 Mg Tablet PO 03/15/22 12:59 DAILY MARKO Sodium Chloride 1,000 mls @ 999 mls/hr 02/12/22 16:22 02/12/22 18:19 Sodium Chloride 0.9% 1000 Ml IV 02/12/22 17:22 Infused .Q1H1M STA Infusion Sodium Chloride Confirm 02/12/22 17:09 Sodium Chloride 0.9% 1000 Ml Administered 02/12/22 17:10 Dose 1,000 mls @ ud .ROUTE .STK-MED ONE Levofloxacin/Dextrose 750 mg in 150 mls @ 100 mls/hr 02/12/22 17:50 02/12/22 19:34 Levofloxacin 750mg/150ml D5w IV 02/12/22 19:19 Infused STAT STA Infusion Levofloxacin/Dextrose Confirm 02/12/22 17:54 Levofloxacin 750mg/150ml D5w Administered 02/12/22 17:55 Dose 750 mg in 150 mls @ ud IV .STK-MED ONE Sodium Chloride 1,000 mls @ 100 mls/hr 02/12/22 20:32 02/13/22 06:37 Sodium Chloride 0.9% 1000 Ml IV 03/14/22 20:31 100 mls/hr .Q10H MARKO Administration Levofloxacin/Dextrose 500 mg in 100 mls @ 100 mls/hr 02/13/22 10:00 02/13/22 10:58 Levofloxacin 500mg/100ml D5w IV 03/15/22 09:59 Not Given Q24H10 [facility] Lisinopril 10 mg 02/13/22 13:00 Lisinopril 10 Mg Tablet PO 03/15/22 12:59 DAILY [facility] Metoclopramide HCl 5 mg 02/13/22 12:00 Metoclopramide Hcl 10 Mg Tablet PO 03/15/22 11:59 TIDWMEALS [facility] Non-Formulary Medication 200 mg 02/14/22 10:00 Topiramate [Trokendi Xr] PO 03/16/22 09:59 DAILY [facility] Ondansetron HCl 4 mg 02/12/22 20:32 Ondansetron Hcl 4 Mg/2 Ml Vial IV 03/14/22 20:31 Q6H PRN PRN NAUSEA/VOMITING Pantoprazole Sodium 40 mg 02/13/22 10:00 02/13/22 09:56 Pantoprazole 40 Mg Vial IV 03/15/22 09:59 40 mg Q24H10 MARKO Administration Pantoprazole Sodium 40 mg 02/14/22 10:00 Protonix (Pantoprazole) 40 Mg Tablet PO 03/16/22 09:59 QAM [facility] Venlafaxine HCl 150 mg 02/13/22 13:00 Venlafaxine Hcl 75 Mg Extended Release Capsule PO 03/15/22 12:59 DAILY [facility] Intake & Output (Last 24 hours) 02/11/22 02/12/22 02/13/22 02/14/22 11:59 11:59 11:59 11:59 Intake Total 1958 480 Output Total 1300 500 Balance 658 -20 Weight 60.4 kg Microbiology Results (Last 24 hours) 02/12/22 17:41 Urine, Void Urine Culture - Preliminary GRAM NEGATIVE ID AND SENSITIVITY PENDING 02/12/22 16:50 Blood Blood Culture Gram Stain - Pending 02/12/22 16:50 Blood Blood Culture - Pending 02/12/22 16:45 Blood Blood Culture Gram Stain - Pending 02/12/22 16:45 Blood Blood Culture - Pending Laboratory Results (Last 24 hours) 02/13/22 02/13/22 02/13/22 04:20 04:20 04:20 WBC 3.7 L RBC 4.00 L Hgb 12.0 Hct 36.5 MCV 91.3 MCH 30.0 MCHC 32.9 RDW 11.7 Plt Count 151 MPV 9.6 Gran % 39.2 Immature Gran % (Auto) 0.3 Nucleat RBC Rel Count 0.0 Eos # (Auto) 0.16 Immature Gran # (Auto) 0.01 Absolute Lymphs (auto) 1.60 Absolute Monos (auto) 0.43 Absolute Nucleated RBC 0.00 Lymphocytes % 43.8 Monocytes % 11.8 Eosinophils % 4.4 Basophils % 0.5 Absolute Granulocytes 1.43 Basophils # 0.02 Sodium 138 Potassium 3.8 Chloride 111 H Carbon Dioxide 21 L Anion Gap 9.0 BUN 11 Creatinine 0.58 Estimated GFR > 60.0 Glucose 100 Calcium 7.8 L Magnesium Total Bilirubin 0.10 L AST 18 ALT 15 Alkaline Phosphatase 52 Troponin I < 0.012 NT-Pro-B Natriuret Pep Serum Total Protein 5.5 L Albumin 3.1 L Urinalys Dipstick Clnc Urine Color Urine Appearance Urine pH Ur Specific [place] POC Urine Protein Conf Urine Ketones Urine Nitrite Urine Bilirubin Urine Urobilinogen Urine Leukocytes Urine WBC (Auto) Urine RBC (Auto) U Epithel Cells (Auto) Urine Bacteria (Auto) Urine RBC Urine Mucus (Auto) Ur Culture Indicated? Urine Glucose Urine Opiates Level Ur Methadone Urine Barbiturates Ur Phencyclidine (PCP) Urine Amphetamine U Benzodiazepine Level Urine Cocaine Urine Marijuana (THC) Influenza Type A Ag Influenza Type B Ag RSV (PCR) SARS-CoV-2 (PCR) 02/12/22 02/12/22 02/12/22 23:41 19:12 18:00 WBC RBC Hgb Hct MCV MCH MCHC RDW Plt Count MPV Gran % Immature Gran % (Auto) Nucleat RBC Rel Count Eos # (Auto) Immature Gran # (Auto) Absolute Lymphs (auto) Absolute Monos (auto) Absolute Nucleated RBC Lymphocytes % Monocytes % Eosinophils % Basophils % Absolute Granulocytes Basophils # Sodium Potassium Chloride Carbon Dioxide Anion Gap BUN Creatinine Estimated GFR Glucose Calcium Magnesium Total Bilirubin AST ALT Alkaline Phosphatase Troponin I < 0.012 < 0.012 NT-Pro-B Natriuret Pep Serum Total Protein Albumin Urinalys Dipstick Clnc Urine Color Urine Appearance Urine pH Ur Specific [place] POC Urine Protein Conf Urine Ketones Urine Nitrite Urine Bilirubin Urine Urobilinogen Urine Leukocytes Urine WBC (Auto) Urine RBC (Auto) U Epithel Cells (Auto) Urine Bacteria (Auto) Urine RBC Urine Mucus (Auto) Ur Culture Indicated? Urine Glucose Urine Opiates Level Ur Methadone Urine Barbiturates Ur Phencyclidine (PCP) Urine Amphetamine U Benzodiazepine Level Urine Cocaine Urine Marijuana (THC) Influenza Type A Ag NEGATIVE Influenza Type B Ag NEGATIVE RSV (PCR) NEGATIVE SARS-CoV-2 (PCR) NEGATIVE 02/12/22 02/12/22 02/12/22 17:41 17:10 16:45 WBC RBC Hgb Hct MCV MCH MCHC RDW Plt Count MPV Gran % Immature Gran % (Auto) Nucleat RBC Rel Count Eos # (Auto) Immature Gran # (Auto) Absolute Lymphs (auto) Absolute Monos (auto) Absolute Nucleated RBC Lymphocytes % Monocytes % Eosinophils % Basophils % Absolute Granulocytes Basophils # Sodium Potassium Chloride Carbon Dioxide Anion Gap BUN Creatinine Estimated GFR Glucose Calcium Magnesium Total Bilirubin AST ALT Alkaline Phosphatase Troponin I < 0.012 NT-Pro-B Natriuret Pep Serum Total Protein Albumin Urinalys Dipstick Clnc MAIN LAB Urine Color YELLOW Urine Appearance SLIGHTLY CLOUDY A Urine pH 6.5 Ur Specific [place] 1.020 POC Urine Protein Conf 30 A Urine Ketones NEGATIVE Urine Nitrite POSITIVE A Urine Bilirubin NEGATIVE Urine Urobilinogen 0.2 Urine Leukocytes TRACE A Urine WBC (Auto) 3-5 A Urine RBC (Auto) 0-2 U Epithel Cells (Auto) NONE Urine Bacteria (Auto) MANY A Urine RBC SMALL A Urine Mucus (Auto) SLIGHT A Ur Culture Indicated? YES Urine Glucose NEGATIVE Urine Opiates Level NEGATIVE Ur Methadone NEGATIVE Urine Barbiturates NEGATIVE Ur Phencyclidine (PCP) NEGATIVE Urine Amphetamine NEGATIVE U Benzodiazepine Level NEGATIVE Urine Cocaine NEGATIVE Urine Marijuana (THC) POSITIVE Influenza Type A Ag Influenza Type B Ag RSV (PCR) SARS-CoV-2 (PCR) 02/12/22 02/12/22 02/12/22 16:45 16:45 16:45 WBC 4.8 RBC 4.45 Hgb 13.7 Hct 40.3 MCV 90.6 MCH 30.8 MCHC 34.0 RDW 11.9 Plt Count 174 MPV 9.7 Gran % 63.0 Immature Gran % (Auto) 0.4 Nucleat RBC Rel Count 0.0 Eos # (Auto) 0.13 Immature Gran # (Auto) 0.02 Absolute Lymphs (auto) 1.15 Absolute Monos (auto) 0.44 Absolute Nucleated RBC 0.00 Lymphocytes % 24.1 Monocytes % 9.2 Eosinophils % 2.7 Basophils % 0.6 Absolute Granulocytes 3.00 Basophils # 0.03 Sodium 134 L Potassium 4.2 Chloride 104 Carbon Dioxide 25 Anion Gap 8.7 BUN 12 Creatinine 0.68 Estimated GFR > 60.0 Glucose 106 Calcium 8.5 Magnesium 1.8 Total Bilirubin 0.20 AST 21 ALT 17 Alkaline Phosphatase 63 Troponin I NT-Pro-B Natriuret Pep 65.8 Serum Total Protein 6.1 L Albumin 3.8 Urinalys Dipstick Clnc Urine Color Urine Appearance Urine pH Ur Specific [place] POC Urine Protein Conf Urine Ketones Urine Nitrite Urine Bilirubin Urine Urobilinogen Urine Leukocytes Urine WBC (Auto) Urine RBC (Auto) U Epithel Cells (Auto) Urine Bacteria (Auto) Urine RBC Urine Mucus (Auto) Ur Culture Indicated? Urine Glucose Urine Opiates Level Ur Methadone Urine Barbiturates Ur Phencyclidine (PCP) Urine Amphetamine U Benzodiazepine Level Urine Cocaine Urine Marijuana (THC) Influenza Type A Ag Influenza Type B Ag RSV (PCR) SARS-CoV-2 (PCR) Orders (Last 24 hours) Category Date Time Status Bedrest ROUTINE Activity 02/12/22 20:32 Completed Up With Assistance ROUTINE Activity 02/12/22 20:32 Completed Call Admit Doctor for Orders ON ADMISSION Care 02/12/22 20:32 Completed Case Manager Specialist STAT Care 02/12/22 16:23 Completed Clean Catch Urine Specimen STAT Care 02/12/22 16:22 Completed Code Status Order ROUTINE Care 02/12/22 20:32 Completed EKG-ER Only STAT Care 02/12/22 16:22 Completed Fall Protocol Q1H Care 02/12/22 20:32 Completed IV Care Q6H Care 02/12/22 20:32 Completed IV Insertion STAT Care 02/12/22 16:22 Completed Neuro Checks Q4H Care 02/12/22 20:32 Completed Orthostatic Vital Signs STAT Care 02/12/22 16:22 Completed POCT Glucose Check STAT Care 02/12/22 16:[address] in Observation ROUTINE Care 02/12/22 20:32 Completed Juaquin Moon, Apply ROUTINE Care 02/12/22 20:32 Completed Telemetry q6h Care 02/12/22 20:47 Completed Weight,Daily 0600 Care 02/12/22 20:32 Completed Ux Architect/Discharge Plan ROUTINE Cons 02/13/22 08:00 Completed Heart-Healthy Diet Diet 02/13/22 Breakfast Completed Discharge Routine Discharge 02/13/22 Ordered Discharge/Telephone Order Routine Discharge 02/13/22 Active CHEST 1 VIEW (PORTABLE) Stat Exams 02/12/22 16:22 Completed HEAD WITHOUT CONTRAST [CT] Stat Exams 02/12/22 16:22 Completed BLOOD CULTURE Stat Lab 02/12/22 16:50 Received BNP [NT PRO BNP] Stat Lab 02/12/22 16:45 Completed CBC W DIFF AM.LAB Lab 02/13/22 04:20 Completed CBC W DIFF Stat Lab 02/12/22 16:45 Completed CMP AM.LAB Lab 02/13/22 04:20 Completed CMP Stat Lab 02/12/22 16:45 Completed COVID/FLU/RSV Panel Stat Lab 02/12/22 18:00 Completed CULTURE,URINE Stat Lab 02/12/22 17:41 Results MAG [MAGNESIUM] Stat Lab 02/12/22 16:45 Completed TROPONIN Q3H Lab 02/12/22 16:45 Completed TROPONIN Q3H Lab 02/12/22 19:12 Completed TROPONIN Q3H Lab 02/12/22 23:41 Completed TROPONIN Q3H Lab 02/13/22 04:20 Completed UA W/RFX CULTURE Stat Lab 02/12/22 17:41 Completed Urine Triage Profile Stat Lab 02/12/22 17:10 Completed Acetaminophen 325 mg [Tylenol 325 mg] Med 02/12/22 20:32 Discontinued 650 mg PO Q4H PRN PRN Albuterol/Ipratropium 3ml Neb* [DUONEB 0.5-3 MG/3 ml Med 02/12/22 20:32 Discontinued Neb] 3 ml IH Q4HPRN PRN Estradiol 1 mg [Estrace 1 mg] Med 02/13/22 13:00 Discontinued 0.5 mg PO DAILY Levofloxacin [Levofloxacin 500MG/100ML D5W] Med 02/13/22 10:00 Discontinued 500 mg in 100 ml IV Q24H10 Levofloxacin [Levofloxacin 750Mg/150Ml D5w] Med 02/12/22 17:50 Discontinued 750 mg in 150 ml IV STAT Levofloxacin [Levofloxacin 750Mg/150Ml D5w] Med 02/12/22 17:54 Discontinued 750 mg in 150 ml IV UD Lisinopril 10 mg [Zestril 10 MG] Med 02/13/22 13:00 Discontinued 10 mg PO DAILY Metoclopramide HCl 10 mg [Reglan 10 MG] Med 02/13/22 12:00 Discontinued 5 mg PO TIDWMEALS NaCl 0.9% 1000 ml [Sodium Chloride 0.9% 1000 ML] 1,000 Med 02/12/22 17:09 Discontinued ml .ROUTE UD NaCl 0.9% 1000 ml [Sodium Chloride 0.9% 1000 ML] 1,000 Med 02/12/22 20:32 Discontinued ml IV 100 mls/hr NaCl 0.9% 1000 ml [Sodium Chloride 0.9% 1000 ML] 1,000 Med 02/12/22 16:22 Discontinued ml IV 999 mls/hr Ondansetron HCl 4 mg/2 ml [Zofran 4 MG/2 ML VIAL] Med 02/12/22 20:32 Discontinued 4 mg IV Q6H PRN PRN PANTOPRAZOLE 40 mg Tablet [Protonix 40MG Tablet] Med 02/14/22 10:00 Discontinued 40 mg PO QAM Pantoprazole 40 mg [Protonix 40 mg IV] Med 02/13/22 10:00 Discontinued 40 mg IV Q24H10 Topiramate [Trokendi Xr] Med 02/14/22 10:00 Discontinued 200 mg PO DAILY Venlafaxine HCl ER 75 mg [Effexor XR 75 MG] Med 02/13/22 13:00 Discontinued 150 mg PO DAILY Respiratory Therapy Assessment DAILY RT 02/12/22 22:19 Completed Smoking Cessation Education ONCE RT 02/13/22 08:00 Completed Patient Care Notes (Last 24 hours) 02/13/22 12:19 Nursing Note by Isabelle Sanchez PATIENT LEFT WITH FRIEND ON DC. STATES SHE WILL [facility] HER RX AND SCHEDULE FOLLOW UP WITH HER PCP. ATTEMPTED TO CALL TO MAKE APPOINTMENT AND OFFICE IS CLOSED FROM -. PATIENT DID NOT WANT TO WAIT TO LEAVE UNTIL OFFICE OPENED BACK UP Initialized on 02/13/22 12:19 - END OF NOTE - Vitals & Intake/Output Vital Signs: Vital Signs Temperature 97.3 F 02/13/22 11:41 Pulse Rate 71 02/13/22 11:41 Respiratory Rate 19 02/13/22 12:00 Blood Pressure 124/60 02/13/22 11:41 O2 Sat by Pulse Oximetry 93 L 02/13/22 11:41 Intake & Output: Intake & Output 02/11/22 02/12/22 02/13/22 02/14/22 11:59 11:59 11:59 11:59 Intake Total 1958 480 Output Total 1300 500 Balance 658 -20 Weight 60.4 kg - Lab Result Diagrams: 02/13/22 04:20 02/13/22 04:20 Lab Results-Last 24 Hrs: Lab Results-Last 24 Hours 02/12/22 02/12/22 02/12/22 Range/Units 16:45 16:45 16:45 WBC 4.8 (4.0-10.5) x10^3/uL RBC 4.45 (4.1-5.4) x10^6/uL Hgb 13.7 (12.0-16.0) g/dL Hct 40.3 (35-47) % MCV 90.6 (78-100) fL MCH 30.8 (26-32) pg MCHC 34.0 (32-36) g/dL RDW 11.9 (11.5-14.0) % Plt Count 174 (150-450) x10^3/uL MPV 9.7 (7.5-11.0) fL Gran % 63.0 (36.0-66.0) % Immature Gran % (Auto) 0.4 (0.00-0.4) % Nucleat RBC Rel Count 0.0 (0.00-0.1) % Eos # (Auto) 0.13 (0-0.5) x10^3/uL Immature Gran # (Auto) 0.02 (0.00-0.03) x10^3u/L Absolute Lymphs (auto) 1.15 (1.0-4.6) x10^3/uL Absolute Monos (auto) 0.44 (0.0-1.3) x10^3/uL Absolute Nucleated RBC 0.00 (0.00-0.01) x10^3u/L Lymphocytes % 24.1 (24.0-44.0) % Monocytes % 9.2 (0.0-12.0) % Eosinophils % 2.7 (0.00-5.0) % Basophils % 0.6 (0.0-0.4) % Absolute Granulocytes 3.00 (1.4-6.9) x10^3/uL Basophils # 0.03 (0-0.4) x10^3/uL Sodium 134 L (137-145) mmol/L Potassium 4.2 (3.5-5.1) mmol/L Chloride 104 (98-107) mmol/L Carbon Dioxide 25 (22-30) mmol/L Anion Gap 8.7 (5-15) MEQ/L BUN 12 (7-17) mg/dL Creatinine 0.68 (0.52-1.04) mg/dL Estimated GFR > 60.0 ML/MIN Glucose 106 (74-106) mg/dL Calcium 8.5 (8.4-10.2) mg/dL Magnesium 1.8 (1.6-2.3) mg/dL Total Bilirubin 0.20 (0.2-1.3) mg/dL AST 21 (14-36) U/L ALT 17 (0-35) U/L Alkaline Phosphatase 63 (38-126) U/L Troponin I (0.000-0.034) ng/mL NT-Pro-B Natriuret Pep 65.8 (0-900) pg/mL Serum Total Protein 6.1 L (6.3-8.2) g/dL Albumin 3.8 (3.5-5.0) g/dL Urinalys Dipstick Clnc Urine Color (YELLOW) Urine Appearance (CLEAR) Urine pH (5-6) Ur Specific [place] (1.005-1.025) POC Urine Protein Conf (Negative) Urine Ketones (NEGATIVE) Urine Nitrite (NEGATIVE) Urine Bilirubin (NEGATIVE) Urine Urobilinogen (0-1) mg/dL Urine Leukocytes (NEGATIVE) Urine WBC (Auto) (0-5) /HPF Urine RBC (Auto) (0-2) /HPF U Epithel Cells (Auto) (FEW) /HPF Urine Bacteria (Auto) (NEGATIVE) /HPF Urine RBC (0-5) Branden/ul Urine Mucus (Auto) (NEGATIVE) /HPF Ur Culture Indicated? Urine Glucose (NEGATIVE) mg/dL Urine Opiates Level (NEGATIVE) Ur Methadone (NEGATIVE) Urine Barbiturates (NEGATIVE) Ur Phencyclidine (PCP) (NEGATIVE) Urine Amphetamine (NEGATIVE) U Benzodiazepine Level (NEGATIVE) Urine Cocaine (NEGATIVE) Urine Marijuana (THC) (NEGATIVE) Influenza Type A Ag (NEGATIVE) Influenza Type B Ag (NEGATIVE) RSV (PCR) (Negative) SARS-CoV-2 (PCR) (NEGATIVE) 02/12/22 02/12/22 02/12/22 Range/Units 16:45 17:10 17:41 WBC (4.0-10.5) x10^3/uL RBC (4.1-5.4) x10^6/uL Hgb (12.0-16.0) g/dL Hct (35-47) % MCV (78-100) fL MCH (26-32) pg MCHC (32-36) g/dL RDW (11.5-14.0) % Plt Count (150-450) x10^3/uL MPV (7.5-11.0) fL Gran % (36.0-66.0) % Immature Gran % (Auto) (0.00-0.4) % Nucleat RBC Rel Count (0.00-0.1) % Eos # (Auto) (0-0.5) x10^3/uL Immature Gran # (Auto) (0.00-0.03) x10^3u/L Absolute Lymphs (auto) (1.0-4.6) x10^3/uL Absolute Monos (auto) (0.0-1.3) x10^3/uL Absolute Nucleated RBC (0.00-0.01) x10^3u/L Lymphocytes % (24.0-44.0) % Monocytes % (0.0-12.0) % Eosinophils % (0.00-5.0) % Basophils % (0.0-0.4) % Absolute Granulocytes (1.4-6.9) x10^3/uL Basophils # (0-0.4) x10^3/uL Sodium (137-145) mmol/L Potassium (3.5-5.1) mmol/L Chloride (98-107) mmol/L Carbon Dioxide (22-30) mmol/L Anion Gap (5-15) MEQ/L BUN (7-17) mg/dL Creatinine (0.52-1.04) mg/dL Estimated GFR ML/MIN Glucose (74-106) mg/dL Calcium (8.4-10.2) mg/dL Magnesium (1.6-2.3) mg/dL Total Bilirubin (0.2-1.3) mg/dL AST (14-36) U/L ALT (0-35) U/L Alkaline Phosphatase (38-126) U/L Troponin I < 0.012 (0.000-0.034) ng/mL NT-Pro-B Natriuret Pep (0-900) pg/mL Serum Total Protein (6.3-8.2) g/dL Albumin (3.5-5.0) g/dL Urinalys Dipstick Clnc MAIN LAB Urine Color YELLOW (YELLOW) Urine Appearance SLIGHTLY CLOUDY A (CLEAR) Urine pH 6.5 (5-6) Ur Specific [place] 1.020 (1.005-1.025) POC Urine Protein Conf 30 A (Negative) Urine Ketones NEGATIVE (NEGATIVE) Urine Nitrite POSITIVE A (NEGATIVE) Urine Bilirubin NEGATIVE (NEGATIVE) Urine Urobilinogen 0.2 (0-1) mg/dL Urine Leukocytes TRACE A (NEGATIVE) Urine WBC (Auto) 3-5 A (0-5) /HPF Urine RBC (Auto) 0-2 (0-2) /HPF U Epithel Cells (Auto) NONE (FEW) /HPF Urine Bacteria (Auto) MANY A (NEGATIVE) /HPF Urine RBC SMALL A (0-5) Branden/ul Urine Mucus (Auto) SLIGHT A (NEGATIVE) /HPF Ur Culture Indicated? YES Urine Glucose NEGATIVE (NEGATIVE) mg/dL Urine Opiates Level NEGATIVE (NEGATIVE) Ur Methadone NEGATIVE (NEGATIVE) Urine Barbiturates NEGATIVE (NEGATIVE) Ur Phencyclidine (PCP) NEGATIVE (NEGATIVE) Urine Amphetamine NEGATIVE (NEGATIVE) U Benzodiazepine Level NEGATIVE (NEGATIVE) Urine Cocaine NEGATIVE (NEGATIVE) Urine Marijuana (THC) POSITIVE (NEGATIVE) Influenza Type A Ag (NEGATIVE) Influenza Type B Ag (NEGATIVE) RSV (PCR) (Negative) SARS-CoV-2 (PCR) (NEGATIVE) 02/12/22 02/12/22 02/12/22 Range/Units 18:00 19:12 23:41 WBC (4.0-10.5) x10^3/uL RBC (4.1-5.4) x10^6/uL Hgb (12.0-16.0) g/dL Hct (35-47) % MCV (78-100) fL MCH (26-32) pg MCHC (32-36) g/dL RDW (11.5-14.0) % Plt Count (150-450) x10^3/uL MPV (7.5-11.0) fL Gran % (36.0-66.0) % Immature Gran % (Auto) (0.00-0.4) % Nucleat RBC Rel Count (0.00-0.1) % Eos # (Auto) (0-0.5) x10^3/uL Immature Gran # (Auto) (0.00-0.03) x10^3u/L Absolute Lymphs (auto) (1.0-4.6) x10^3/uL Absolute Monos (auto) (0.0-1.3) x10^3/uL Absolute Nucleated RBC (0.00-0.01) x10^3u/L Lymphocytes % (24.0-44.0) % Monocytes % (0.0-12.0) % Eosinophils % (0.00-5.0) % Basophils % (0.0-0.4) % Absolute Granulocytes (1.4-6.9) x10^3/uL Basophils # (0-0.4) x10^3/uL Sodium (137-145) mmol/L Potassium (3.5-5.1) mmol/L Chloride (98-107) mmol/L Carbon Dioxide (22-30) mmol/L Anion Gap (5-15) MEQ/L BUN (7-17) mg/dL Creatinine (0.52-1.04) mg/dL Estimated GFR ML/MIN Glucose (74-106) mg/dL Calcium (8.4-10.2) mg/dL Magnesium (1.6-2.3) mg/dL Total Bilirubin (0.2-1.3) mg/dL AST (14-36) U/L ALT (0-35) U/L Alkaline Phosphatase (38-126) U/L Troponin I < 0.012 < 0.012 (0.000-0.034) ng/mL NT-Pro-B Natriuret Pep (0-900) pg/mL Serum Total Protein (6.3-8.2) g/dL Albumin (3.5-5.0) g/dL Urinalys Dipstick Clnc Urine Color (YELLOW) Urine Appearance (CLEAR) Urine pH (5-6) Ur Specific [place] (1.005-1.025) POC Urine Protein Conf (Negative) Urine Ketones (NEGATIVE) Urine Nitrite (NEGATIVE) Urine Bilirubin (NEGATIVE) Urine Urobilinogen (0-1) mg/dL Urine Leukocytes (NEGATIVE) Urine WBC (Auto) (0-5) /HPF Urine RBC (Auto) (0-2) /HPF U Epithel Cells (Auto) (FEW) /HPF Urine Bacteria (Auto) (NEGATIVE) /HPF Urine RBC (0-5) Branden/ul Urine Mucus (Auto) (NEGATIVE) /HPF Ur Culture Indicated? Urine Glucose (NEGATIVE) mg/dL Urine Opiates Level (NEGATIVE) Ur Methadone (NEGATIVE) Urine Barbiturates (NEGATIVE) Ur Phencyclidine (PCP) (NEGATIVE) Urine Amphetamine (NEGATIVE) U Benzodiazepine Level (NEGATIVE) Urine Cocaine (NEGATIVE) Urine Marijuana (THC) (NEGATIVE) Influenza Type A Ag NEGATIVE (NEGATIVE) Influenza Type B Ag NEGATIVE (NEGATIVE) RSV (PCR) NEGATIVE (Negative) SARS-CoV-2 (PCR) NEGATIVE (NEGATIVE) 02/13/22 02/13/22 02/13/22 Range/Units 04:20 04:20 04:20 WBC 3.7 L (4.0-10.5) x10^3/uL RBC 4.00 L (4.1-5.4) x10^6/uL Hgb 12.0 (12.0-16.0) g/dL Hct 36.5 (35-47) % MCV 91.3 (78-100) fL MCH 30.0 (26-32) pg MCHC 32.9 (32-36) g/dL RDW 11.7 (11.5-14.0) % Plt Count 151 (150-450) x10^3/uL MPV 9.6 (7.5-11.0) fL Gran % 39.2 (36.0-66.0) % Immature Gran % (Auto) 0.3 (0.00-0.4) % Nucleat RBC Rel Count 0.0 (0.00-0.1) % Eos # (Auto) 0.16 (0-0.5) x10^3/uL Immature Gran # (Auto) 0.01 (0.00-0.03) x10^3u/L Absolute Lymphs (auto) 1.60 (1.0-4.6) x10^3/uL Absolute Monos (auto) 0.43 (0.0-1.3) x10^3/uL Absolute Nucleated RBC 0.00 (0.00-0.01) x10^3u/L Lymphocytes % 43.8 (24.0-44.0) % Monocytes % 11.8 (0.0-12.0) % Eosinophils % 4.4 (0.00-5.0) % Basophils % 0.5 (0.0-0.4) % Absolute Granulocytes 1.43 (1.4-6.9) x10^3/uL Basophils # 0.02 (0-0.4) x10^3/uL Sodium 138 (137-145) mmol/L Potassium 3.8 (3.5-5.1) mmol/L Chloride 111 H (98-107) mmol/L Carbon Dioxide 21 L (22-30) mmol/L Anion Gap 9.0 (5-15) MEQ/L BUN 11 (7-17) mg/dL Creatinine 0.58 (0.52-1.04) mg/dL Estimated GFR > 60.0 ML/MIN Glucose 100 (74-106) mg/dL Calcium 7.8 L (8.4-10.2) mg/dL Magnesium (1.6-2.3) mg/dL Total Bilirubin 0.10 L (0.2-1.3) mg/dL AST 18 (14-36) U/L ALT 15 (0-35) U/L Alkaline Phosphatase 52 (38-126) U/L Troponin I < 0.012 (0.000-0.034) ng/mL NT-Pro-B Natriuret Pep (0-900) pg/mL Serum Total Protein 5.5 L (6.3-8.2) g/dL Albumin 3.1 L (3.5-5.0) g/dL Urinalys Dipstick Clnc Urine Color (YELLOW) Urine Appearance (CLEAR) Urine pH (5-6) Ur Specific [place] (1.005-1.025) POC Urine Protein Conf (Negative) Urine Ketones (NEGATIVE) Urine Nitrite (NEGATIVE) Urine Bilirubin (NEGATIVE) Urine Urobilinogen (0-1) mg/dL Urine Leukocytes (NEGATIVE) Urine WBC (Auto) (0-5) /HPF Urine RBC (Auto) (0-2) /HPF U Epithel Cells (Auto) (FEW) /HPF Urine Bacteria (Auto) (NEGATIVE) /HPF Urine RBC (0-5) Branden/ul Urine Mucus (Auto) (NEGATIVE) /HPF Ur Culture Indicated? Urine Glucose (NEGATIVE) mg/dL Urine Opiates Level (NEGATIVE) Ur Methadone (NEGATIVE) Urine Barbiturates (NEGATIVE) Ur Phencyclidine (PCP) (NEGATIVE) Urine Amphetamine (NEGATIVE) U Benzodiazepine Level (NEGATIVE) Urine Cocaine (NEGATIVE) Urine Marijuana (THC) (NEGATIVE) Influenza Type A Ag (NEGATIVE) Influenza Type B Ag (NEGATIVE) RSV (PCR) (Negative) SARS-CoV-2 (PCR) (NEGATIVE) Micro Results-Entire Visit: Microbiology 02/12/22 17:41 Urine Culture - Preliminary Urine, Void GRAM NEGATIVE ID AND SENSITIVITY PENDING Accuchecks Date 02/12/22 Time 17:41 - Radiology Exams Ordered Rad Exams-Entire Visit: Radiology Procedures Category Date Time Status CHEST 1 VIEW (PORTABLE) Stat Exams 02/12/22 16:22 Completed HEAD WITHOUT CONTRAST [CT] Stat Exams 02/12/22 16:22 Completed - Procedures and Test Procedures and Tests throughout Hospitalization: Therapy Orders & Screens 02/12/22 22:19 Respiratory Therapy Assessment DAILY Comment: Diagnosis: Syncope and collapse 02/13/22 08:00 Smoking Cessation Education ONCE Comment: Diagnosis: Syncope and collapse Smoking Status: Current every day smoker How long have you smoked: 45 years Have you smoked in the past 12 months: Yes Approximately how many cigarettes per day: 1 ppd Do you dip or chew tobacco: No - Discharge Discharge Date: 02/13/22 Disposition: Home, Self-Care Condition: Stable Prescriptions: New Levofloxacin [Levofloxacin 500 MG Tablet] 500 mg PO DAILY 5 Days #5 tablet No Action Venlafaxine HCl [Venlafaxine HCl ER] 150 mg PO DAILY Metoclopramide HCl 5 mg PO TIDWMEALS Topiramate [Trokendi Xr] 200 mg PO DAILY Lisinopril 10 mg [Zestril 10 MG] 10 mg PO DAILY PANTOPRAZOLE 40 mg Tablet [Protonix 40MG Tablet] 40 mg PO QAM Estradiol [Estrace] 0.5 mg PO DAILY Instructions: Syncope (Fainting) (DC) Additional Instructions: FINISH ANTIBIOTIC THERAPY FOR URINARY TRACT INFECTION. IT WILL BE READY FOR [facility] AT [facility] IN [place]. FOLLOW UP WITH PRIMARY CARE DOCTOR Follow up with: RENETTA ALEXANDER [Primary Care Provider] - 1 Week
[2022-02-13] MEDS ORDERED: NON-FORMULARY ITEM (Metoclopramide Hcl [Metoclopramide Hcl] 5 MG Tablet) PO SCH (17:00)
[2022-02-14] MEDS ORDERED: NON-FORMULARY ITEM (Venlafaxine Hcl [Venlafaxine Hcl Er] 150 MG Tab.Er.24) PO SCH (10:00)
[2022-02-14] MEDS ORDERED: Protonix 40MG Tablet PO SCH (10:00)
[2022-02-14] MEDS ORDERED: TOPIRAMATE 200 MG PO SCH (10:00)
== END 2022-02-13 12:45 | disposition home or self-care (01) ==
LOC: ED 16:08 → MED SURG 20:29
PROVIDERS: ADMIT General Practice; ATTEND General Practice
DX: N39.0 Urinary tract infection, site not specified (principal); I10 Essential (primary) hypertension; Z72.0 Tobacco use; Z79.899 Other long term (current) drug therapy; Z20.828 Contact with and (suspected) exposure to other viral communicable diseases
CPT/HCPCS: 0241U; 36000; 36415; 70450; 71045; 80053; 80307; 81015; 83735; 83880; 84484; 85025; 87040; 87077; 87086; 87186; 93005; 93041; 93268; 96360; 96365; 99285; G0378; J1956

== ENCOUNTER 2022-06-05 10:06 | Day surgery (SDC) | payer MEDICARE ==
--- NOTE | 2022-06-05 08:27 | HP ---
DATE OF SURGERY: 06/05/2022 HISTORY OF PRESENT ILLNESS: The patient is a 62-year-old with increasing reflux and no recent upper endoscopy and also in need of screening colonoscopy. No bloody stools. No change in bowel habits. No new pain. Family history negative for colon cancer. PAST MEDICAL HISTORY: Chronic obstructive pulmonary disease, hypertension. PAST SURGICAL HISTORY: Hysterectomy. section. MEDICATIONS: Pantoprazole. Envision. Fluconazole. Aimovig. Sumatriptan. Lisinopril. Metoclopramide. Estradiol. Venlafaxine. Trokendi XR. Betamethasone cream. Nifedipine XL. ALLERGIES: PENICILLIN. FAMILY HISTORY: Negative for colon cancer. SOCIAL HISTORY: Current every day smoker, occasional alcohol use. REVIEW OF SYSTEMS: Fourteen systems reviewed. No chest pain or palpitations. Other systems negative or noncontributory as above and per preadmission questionnaire. PHYSICAL EXAMINATION: BMI 27. Height 4' 10". GENERAL: No acute distress. HEENT: Sclerae nonicteric. NECK: No JVD. CHEST: Clear to auscultation. CVS: Regular rate and rhythm. ABDOMEN: Soft. No peritoneal signs. EXTREMITIES: No significant edema. NEURO: Alert, oriented, moving extremities symmetrically. RECTAL: Deferred timed to endoscopy exam. PSYCH: Appropriate mood and affect. SKIN: Dry. IMPRESSION: Acute reflux, needs EGD possible biopsy to evaluate for gastritis, peptic ulcer disease, esophageal or other etiology. She also needs screening colonoscopy. General risk of bleeding or infection, risk of bowel injury or perforation, risk of missed or nondiagnosis or incomplete exam possibly requiring barium swallow, barium enema, other studies or procedures. General risk of anesthesia or sedation, risk of bowel prep but not limited to, consent obtained. Will proceed with outpatient EGD possible biopsy as well as screening colonoscopy.
[2022-06-05] MEDS ORDERED: Lactated Ringers 1,000 ML IV ONE (10:19)
[2022-06-05] MEDS ORDERED: Lactated Ringers 1,000 ML IV SCH ×2 (10:30)
[2022-06-05] MEDS ORDERED: Versed 2 MG/2 ML Injection ONE (11:55)
[2022-06-05] MEDS ORDERED: DIPRIVAN 200 MG/20 ML IV ONE ×2 (11:55→12:19)
[2022-06-05 13:26] VITALS: BP 154/87; PULSE 69; O2SAT 94
--- NOTE | 2022-06-05 15:03 | OP ---
SURGERY DATE/TIME: 06/05/2022 1155 PREOPERATIVE DIAGNOSES: 1) History of increased reflux. 2) Need for screening colonoscopy. POSTOPERATIVE DIAGNOSES: 1) ASA Class II. 2) Mild gastritis. 3) Very short segment of early distal esophagitis. 4) Fair bowel prep. 5) Small polyps sigmoid colon and rectum. 6) Very tortuous colon. 7) Withdrawal time was about nine minutes. PROCEDURES: 1) EGD with cold biopsy of small bowel to evaluate for celiac sprue. 2) Cold biopsy of antrum to evaluate for Helicobacter pylori. 3) Cold biopsy distal esophagus to evaluate very short segment distal esophagitis. 4) Colonoscopy to cecum with hot snare polypectomy 4 mm sigmoid colon polyp. 5) Hot biopsy polypectomy small early polyps versus hyperplastic lesion rectum x2. 6) Cold biopsy of patchy area of inflammation versus prep irritation sigmoid colon. SURGEON: Dr. Brando Coreas. ANESTHESIA: MAC. ESTIMATED BLOOD LOSS: Minimal. INDICATIONS: As noted above. Risks and benefits explained in detail and not limited to and consent obtained. DESCRIPTION OF PROCEDURE AND FINDINGS: The patient is taken to the endoscopy room. MAC anesthesia introduced. After official time out and no disagreement with planned procedure, bite block positioned. Video gastroscope easily passed down the esophagus to the patent pylorus to the third portion of the duodenum. Third, second and first portions of duodenum grossly unremarkable. Given her symptom complaints and no large ulcers or esophagitis, cold biopsy taken to evaluate for celiac sprue. Good hemostasis noted. The scope is pulled back in the stomach. She had some mild gastritis and gastric erythema and some congestion. No evidence of any erosions or ulcers. Cold biopsy taken to evaluate for Helicobacter pylori. Good hemostasis noted. On retroflex the gastroesophageal junction snug against the scope. The scope is straightened. The gastroesophageal junction about 37 cm. There was a short segment of 2.5 to 3 mm of short segment distal esophagitis, mild esophagitis. Cold biopsy is taken for path. Good hemostasis noted. The remainder of the esophagus grossly unremarkable. The scope is withdrawn. Attention is then turned to colonoscopy. Digital rectal exam did not reveal any rectal masses. Video colonoscope inserted and passed up through the very tortuous sigmoid, descending, transverse, ascending colon. It took quite some time with positioning on her back and staff members pushing on the abdomen. The scope was finally able to be navigated around to the cecum. Appendiceal orifice and valve well visualized and photo documented. Prep overall was fair with some liquidy semisolid stool throughout the colon was suctioned and irrigated as clear as possible just slightly limiting the exam for small lesions. The scope was carefully withdrawn over the next nine minutes. No signs of any large polyps, masses or obstructing lesions. The liquidy semisolid stool suctioned irrigated as clear as possible. Back in the rectum there were two small polyps. One was raised a little bit more pedunculated and the other one was a little more flatter both removed with hot biopsy polypectomy. Good hemostasis noted. There was one patchy area question early inflammation versus prep irritation in the sigmoid biopsied with cold biopsy forceps. Good hemostasis noted. The scope is withdrawn. The patient tolerated the procedure well. There were no immediate complications. Findings discussed with the family out in the waiting area.
== END 2022-06-05 13:30 | disposition home or self-care (01) ==
LOC: SDC 10:06
PROVIDERS: ATTEND Surgery
DX: Z12.11 Encounter for screening for malignant neoplasm of colon (principal); K21.9 Gastro-esophageal reflux disease without esophagitis; K29.70 Gastritis, unspecified, without bleeding; K20.90 Esophagitis, unspecified without bleeding; K62.1 Rectal polyp; D12.5 Benign neoplasm of sigmoid colon
CPT/HCPCS: J2250; J2704

== ENCOUNTER 2023-09-18 09:21 | Emergency (ER) | payer MEDICARE, OTHER ==
[2023-09-18 09:36] VITALS: PULSE 75; TEMP 98.1
[2023-09-18 10:22] VITALS: BP 159/90; O2SAT 96
--- NOTE | 2023-09-18 10:32 | XRAY ---
Indication: Pain following injury. Comparison: None 2 portable views right forearm demonstrates osteopenia, mild 1st metacarpal multangular degenerative changes, and 7 mm oval medial epicondyle heterotopic ossification. No other bony, articular, or soft tissue abnormalities.
--- NOTE | 2023-09-18 10:57 | ERPHSYRPT ---
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 Patient states she ran her right arm over with her lawnmower mowing deck. Injury occurred yesterday. Pain described as an ache that is localized to the right arm. Pain worse with movement and palpation to the right arm. No other injuries reported. No lacerations. No joint pain. Symptoms are mild to moderate in intensity. Patient otherwise feels well she voices no other complaints or concerns at this time. Portions of this note were created with voice recognition technology. There may be grammatical, spelling, punctuation or sound alike errors Timing/Duration: yesterday Severity: moderate Modifying Factors: Improves With: nothing Associated Symptoms: denies symptoms Allergies/Adverse Reactions: Penicillins Allergy (Severe, Verified 09/18/23 09:36) Anaphylactic Reaction hives,itching amoxicillin Allergy (Verified 09/18/23 09:36) Tetracyclines Allergy (Verified 09/18/23 09:36) Home Medications: Estradiol [Estrace] 0.5 mg PO DAILY 02/12/22 [History] Lisinopril 10 mg [Zestril 10 MG] 10 mg PO DAILY 02/12/22 [History] Metoclopramide HCl 5 mg PO TIDWMEALS 02/12/22 [History] PANTOPRAZOLE 40 mg Tablet [Protonix 40MG Tablet] 40 mg PO QAM 02/12/22 [History] Topiramate [Trokendi Xr] 200 mg PO DAILY 02/12/22 [History] Venlafaxine HCl [Venlafaxine HCl ER] 225 mg PO DAILY 02/12/22 [History] Sumatriptan Succinate [Imitrex] 100 mg PO DAILY PRN PRN 05/08/22 [History] Erenumab-Aooe [Aimovig Autoinjector] 140 mg SQ UD 09/18/23 [History] Hx Tetanus, Diphtheria Vaccination/Date Given: Yes Hx Influenza Vaccination/Date Given: No Hx Pneumococcal Vaccination/Date Given: No Travel Risk - International Travel Have you traveled outside of the country in past 3 weeks: No - Emerging Infectious Disease Are you exhibiting symptoms associated with any current EIDs: No - Review of Systems Constitutional: No Symptoms, No Fever, No Chills Eyes: No Symptoms Ears, Nose, & Throat: No Symptoms Respiratory: No Symptoms, No Cough, No Dyspnea Cardiac: No Symptoms, No Chest Pain, No Edema, No Syncope Abdominal/Gastrointestinal: No Symptoms, No Abdominal Pain, No Nausea, No Vomiting, No Diarrhea Genitourinary Symptoms: No Symptoms, No Dysuria Musculoskeletal: No Symptoms, No Back Pain, No Neck Pain Skin: No Symptoms, No Rash Neurological: No Symptoms, No Dizziness, No Focal Weakness, No Sensory Changes Psychological: No Symptoms Endocrine: No Symptoms Hematologic/Lymphatic: No Symptoms Immunological/Allergic: No Symptoms All Other Systems: Reviewed and Negative - Past Medical History Pertinent Past Medical History: Yes Neurological History: Migraines ENT History: No Pertinent History Cardiac History: Hypertension Respiratory History: No Pertinent History Endocrine Medical History: No Pertinent History Musculoskeletal History: Degenerative Disk Disease GI Medical History: GERD History: Other Psycho-Social History: Anxiety, Depression Female Reproductive Disorders: No Pertinent History Other Medical History: cysts in bilateral kidneys - Past Surgical History Past Surgical History: Yes Cardiac: No Pertinent History Respiratory: No Pertinent History Gastrointestinal: Appendectomy, Cholecystectomy Genitourinary: No Pertinent History Musculoskeletal: Other Female Surgical History: Hysterectomy, Section Other Surgical History: Bilateral elbow and hand surgery - Social History Smoking Status: Current every day smoker How long have you smoked: 45 years Exposure to second hand smoke: Yes Drug Use: marijuana - Social Determinants of Health Will the patient participate in the screening: Declined to provide - Nursing Vital Signs Nursing Vital Signs: Initial Vital Signs Temperature 98.1 F 09/18/23 09:28 Pulse Rate 75 09/18/23 09:28 Blood Pressure 134/86 09/18/23 09:28 O2 Sat by Pulse Oximetry 97 09/18/23 09:28 Pain Scale Pain Intensity 6 - Physical Exam General Appearance: no apparent distress, alert Eye Exam: PERRL/EOMI, eyes nml inspection Ears, Nose, Throat Exam: normal ENT inspection, TMs normal, pharynx normal, moist mucous membranes Neck Exam: normal inspection, non-tender, supple, full range of motion Respiratory Exam: normal breath sounds, lungs clear, airway intact, No respiratory distress Cardiovascular Exam: regular rate/rhythm, normal heart sounds, normal peripheral pulses Gastrointestinal/Abdomen Exam: soft, normal bowel sounds, No tenderness, No mass Back Exam: normal inspection, normal range of motion, No CVA tenderness, No vertebral tenderness Extremity Exam: normal inspection, normal range of motion, pelvis stable, other (Tenderness palpation right forearm. Guarded range of motion at the right wrist and fingers. No open or draining lesions. There are superficial abrasions however. Compartments are soft cap refill less than 2 seconds. Radial pulse palpable.) Neurologic Exam: alert, oriented x 3, cooperative, normal mood/affect, sensation nml, No motor deficits Skin Exam: normal color, warm, dry, No rash Lymphatic Exam: No adenopathy SpO2 Interpretation: normal SpO2: 96 O2 Delivery: Room Air - Course Nursing assessment & vital signs reviewed: Yes - Radiology Exams Forearm X-ray Interpretation: Teleradiologist Report (No fracture dislocations. Osteopenia, first metacarpal arthritis and medial epicondyles heterotopic ossification) Ordered Tests: Active Orders 24 hr Category Date Time Status FOREARM Stat Exams 09/18/23 09:53 Completed - Progress Progress: improved Progress Note: 63-year-old female presents to our ED for evaluation of right arm pain. Patient right forearm was run over by her lawn [employer]. Injury occurred yesterday. Physical exam reveals some superficial abrasions. No open or draining lesions. Extremities neurovascular tact distally compartments are soft cap refill less than 2 seconds. X-ray negative for fracture dislocations. Chronic findings obs erved. Patient received Tylenol for pain control. Right upper extremity sling applied as well. No indication for further workup will discharge home. Patient agrees to follow-up with a primary care doctor within 48 hours for reevaluation. Portions of this note were created with voice recognition technology. There may be grammatical, spelling, punctuation or sound alike errors Complexity problem addressed is moderate acute complicated. No critical care time. Complex of data reviewed and analyzed is moderate. Test ordered test reviewed results analyzed and correlated clinically with history and physical exam. Risk of complication and or risk of morbidity/mortality of patient management is low. Vital stable. Time spent to discharge patient approximately 20 minutes. Plan of care established for shared decision making. No social determinants of health present impede follow-up. Portions of this note were created with voice recognition technology. There may be grammatical, spelling, punctuation or sound alike errors 09/18/23 10:57 Counseled pt/family regarding: diagnosis, need for follow-up, rad results - Departure Departure Disposition: Home Clinical Impression: Forearm contusion, Forearm abrasion Condition: Stable Critical Care Time: No Referrals: RENETTA ALEXANDER [Primary Care Provider] - Follow up/PCP as directed Additional Instructions: Discharge/Care Plan DANTE MUNSON was seen on 09/18/23 in the Emergency Room. The patient was counseled regarding Diagnosis,Lab results, Imaging studies, need for follow up and when to return to the Emergency Room. Prescriptions given: Discharge Note I have spoken with the patient and/or caregivers. I have explained the patient's condition, diagnosis and treatment plan based on the information available to me at this time. I have answered the patient's and/or caregiver's questions and addressed any concerns. The patient and/or caregivers have as good understanding of the patient's diagnosis, condition and treatment plan as can be expected at this point. The vital signs have been stable. The patient's condition is stable and appropriate for discharge from the emergency department. The patient will pursue further outpatient evaluation with the primary care physician or other designated or consulting physician as outlined in the discharge instructions. The patient and/or caregivers are agreeable to this plan of care and follow-up instructions have been explained in detail. The patient and/or caregivers have received these instruction. The patient/and or caregivers are aware that any significant change in condition or worsening of symptoms should prompt an immediate return to this or the closest emergency department or call 911.
[2023-09-18] MEDS ORDERED: TYLENOL 325 MG ONE (11:05)
[2023-09-18] MEDS: TYLENOL 325 MG PO ONE (11:07)
== END 2023-09-18 11:17 | disposition home or self-care (01) ==
LOC: ED 09:21
DX: S50.11XA Contusion of right forearm, initial encounter (principal); S50.811A Abrasion of right forearm, initial encounter; W31.89XA Contact with other specified machinery, initial encounter; Y93.H2 Activity, gardening and landscaping; Y92.007 Garden or yard of unspecified non-institutional (private) residence as the place of occurrence of the external cause; I10 Essential (primary) hypertension; Z79.899 Other long term (current) drug therapy; Z72.0 Tobacco use
CPT/HCPCS: 73090; 99283; A9270-GY